=== PATIENT | female | born 2005 | race Caucasian/White ===

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

== ENCOUNTER 2023-09-16 08:00 | Outpatient (RCR) | payer MEDICAID, SELFPAY ==
--- NOTE | 2023-09-16 09:00 | BH.SGPN.GN ---
Behaviors/Verbalizations/Mental Status: [Patient was alert and oriented, appropriately dressed and groomed. Eye contact was good, motor activity normal, speech within normal limits. Affect congruent, mood content. Thoughts linear, logical, no signs of hallucinations or delusions. Patient reports moderate in anxiety/panic attacks, agitation/irritability/anger, low/moderate in depressed mood, and low in self-harm urges. Patient does not report symptoms on thoughts/risk of suicide.???] Client Response/Progress/Benefit: [This is the patients first group; he was open to share her mental health goals and stressors with the rest of the group. Patient reported her mood was ?tired?. Patients stressor is that her figuero? lost his job on Saturday and because they have a 5 month old baby to take care of. She said her fianc? does not seem worried, so she is trying to stay optimistic. The first win was that she went to [place] yesterday and took some family pictures. She said she has been wanting to do this but had not had the opportunity to yet. The second win was she got to see some family of hers that she has not seen in awhile which she stated was nice. Patient was interactive and respectful with other group members about their mental wins and stressors. Patient benefited from the discussion by listening to feedback and giving input on her peer?s stressors and mental health wins. Patient will continue with IOP treatment to help develop healthy skills, promote mood stability, and improve distress tolerance.] Narrative Note: []
--- NOTE | 2023-09-16 10:10 | BH.SGPN.GN ---
Behaviors/Verbalizations/Mental Status: []Eye contact is fair, at times good. Alert and oriented. Motor activity is appropriate. Appearance is casual. grooming is appropriate. Speech is Appropriate. Mood is anxious. Affect is congruent. Thoughts are linear and logical. No evidence of psychosis or hallucinations. Client Response/Progress/Benefit: []Client active participant throughout group session AEB providing contributions throughout, listening attentively to others, and taking notes throughout session. Group attentive during psychoeducation about emotion regulation and dysregulation. Appeared to connect with scenarios reviewed in group on emotion regulation vs dysregulation. Client shared that she struggles with regulating her emotions which can lead to her isolating or lashing out on others. Client benefited from session by gaining an increased understanding on the importance of managing emotions. Client to continue IOP to improve daily functioning, increase healthy coping, and prevent decompensation.
--- NOTE | 2023-09-16 11:10 | BH.SGPN.GN ---
Behaviors/Verbalizations/Mental Status: []Pt alert and oriented, casually dressed and groomed. Eye contact good. Motor activity restless. Speech within normal limits. Affect constricted, mood anxious. Thoughts linear, logical, no signs of hallucinations or delusions. Client Response/Progress/Benefit: [] Pt engaged in session AEB Pt listening attentively to peers and providing input. Attentive during psychoeducation on 4 zones of regulation. Pt able to identify feelings and behaviors for each zone. Pt identified coping skills one can use to support self in each zone. Identified one skill from each zone she can practice which included: give self a break, do something fun/enjoyable, and GLAD journal. Benefited from increased education on zones of regulation or stages of alertness for emotions and healthy coping skills to use for each zone. Will continue IOP tx to increase healthy coping skills, improve daily functioning, and prevent decompensation.
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
--- NOTE | 2023-09-16 13:37 | BH.MDN ---
Multi-Disciplinary Note Note 30-min Individual: Time Started:: 12:10 Date: 09/16/23 Purpose of session/treatment goals addressed:: Clinician checked in with patient since this was her first day. Discussed what she hopes to take away from the groups and answered any questions that she had. Symptoms/Behavior:: Patient was alert and oriented, appropriately dressed and groomed. Eye contact was good, motor activity normal, speech within normal limits. Affect congruent, mood content. Thoughts linear, logical, no signs of hallucinations or delusions Eye Contact:: Good Motor Activity:: Appropriate Appearance:: Casual Speech:: Appropriate and Other (Flat) Mood:: Euthymic Affect:: Congruent Thoughts:: Linear and No evidence of hallucinations/delusions noted Staff Interventions:: mindfulness skills, rapport building, strengths perspective, treatment planning and goal setting Client Response:: Patient was receptive and engaged in the session. Patient shared that she has been in and out of therapy since 2nd grade. She admitted that once she started feeling better, she stopped going because she thought she was better now and didn't need it. Patient reported that she had a baby 5 months ago and up until 2 months ago, her post affected her badly but feels she is better now. Patient said her favorite quote was hope breeds eternal misery. When prompted about what this meant to her, she stated that she has always been let down in the past. She said what is the point of getting your hopes up if you know you'll be disappointed. Patient recognizes the distortion here but doesn't know how to stop thinking this way. Therapist and Patient spoke briefly about treatment goals while in the program. Therapist answered any additional questions that she had about the program. Risks/Concerns:: None present Progress Toward Goals/Plan:: Good Progress. Time Stopped:: 12:46
--- NOTE | 2023-09-18 09:50 | BH.NA ---
Physical Data Vital Signs Pulse Rate: 72 Blood Pressure: 126/75 Height/Weight Height: 1.6 m Weight:: 90.718 kg Weight in Pounds: 200.0 lbs Current Medication Compliance Medication Compliance Do you take your medication as prescribed?: Yes Nutritional History Appetite Nutritional Instructions: Describe your appetite:: Fair Additional nutritional information:: Client is 5 months post . Client states her appetite varies, but she usually only eats 1 meal per day with some snacks. Functional Assessment Sleep Pattern Describe any problems with sleeping: Client states she sleeps about 6 hours per night. Sensory/Communication Assess Vision Problems Do you have any vision problems?: Glasses Communication Problems Do you have difficulty understanding what people are saying?: No Medical Problems/History Neurological Conditions Neurological: Other (See comments) (migraines) Pain Assessment Do you have acute or chronic pain?: No Family History Family History Other Anxiety Autoimmune disorder Bleeding disorder Blood clot in vein Depression Heart disease Mental disorder Seizures Surgical History Surgical History Have you had any surgeries? If so, list type and date:: Yes () Substance Abuse Substance Abuse Please describe substance abuse in the last 30 days:: Client states she commonly drinks alcohol on the weekends only, stating she sometimes drinks up to 4 drinks per day on weekends. Client states she vapes nicotine and has since she was a freshman in high school, but does state she did not while she was . Client denies substance use. Client states she does drink caffeine daily but does not drink more than 300mg caffeine and does not drink energy drinks. Mental Status Summary Mental Status Significant Findings/Observations on Appearance and Mood:: Client is alert and oriented x 4. Client is casually groomed with good hygiene. Client is cooperative with assessment. Client makes fair eye contact. Client's voice has normal rate/volume. Client has appropriate affect. Client makes logical associations and has normal processing. Client denies delusions/hallucinations. Client denies SI. Suicide Assessment Suicidal Ideation Are you currently or have you been suicidal in the past?: No Suicidal Intentional Rating Scale (SIRS): No suicidal thoughts (past or present) Physician Notification Past Psychiatric History MH Treatment Hx Past Psychiatric Medications:: Celexa, Zoloft, Cymbalta, Zyprexa, Prozac Age of first mental health symptoms: Client states she has been in counseling off and on since second grade, and states she has been on medication for mental health off and on since around the age of 10. Describe (age, circumstance, etc) any past hospitalizations: None. Current providers for mental health treatment (counselor, psychiatrist, shelter case manager, etc.): Dr. Cortez for psychiatry Fall Risk Assessment Age Age: Less than 60 Mental Status Mental Status: Willing & able to ask for assistance when needed Physical Status Physical Status: No problems Impairments Impairments: None Elimination Elimination: Continent AND independent Gait or Balance Gait or Balance: Walks independently Hx of Falls History of falls in the past 6 months: No known history Medications/Substances Psychotropics:: Antidepressants and Antihistamines (e.g. Benadryl) Medications/substances used within the past 24 hours or ordered to administer: 1-2 of the medications/substances listed above Total Score Total Points:: 1 RN Summary of Impressions Impressions Recommendations Impressions: Psychiatric Issues: 1. Bipolar, NOS 2. Panic disorder 3. PTSD 4. Strong cluster B traits Level of Care How do the client's current symptoms and functional deficits support need for this level of care?: Client was referred to IOP by Dr. Cortez for limited benefit in outpatient. Client states she has been feeling sad since 2nd grade, and she feels like now that she has a daughter, she needs more intensive therapy. Client states I just want to be the best I can be for her. Client reports crying spells, especially around her menstrual cycle. Client states she now has a hormonal IUD and her cycles are all over the place. Client reports anhedonia, decreased energy, and decreased motivation. Client states she is home all day with her 5 month old daughter while her boyfriend works 2 jobs, and states at times this feels overwhelming and states sometimes I wish I could just disappear. Client denies SI. Client states the first couple of months post she did feel more depressed, but she states now she is ready to build my tool box with skills to help me. IOP will promote gains and prevent further decompensation while providing social support and skills training.
[2023-09-18 10:31] VITALS: BP 126/75; PULSE 72
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
--- NOTE | 2023-09-18 13:15 | BH.DR.ITP ---
Initial Treatment Plan Patient Information Visit Information: ADMISSION DATE: EXPECTED LOS: 4-6 weeks Problems/Symptoms Problem #1:: Mood instability Symptom:: Depression, sadness, hopelessness, worthlessness, anhedonia, guilt, decreased concentration, low energy Problem #2:: Anxiety Symptom:: Worry, rumination, avoidance, flashbacks, nightmares, reexperiencing
--- NOTE | 2023-09-19 09:00 | BH.SGPN.GN ---
Behaviors/Verbalizations/Mental Status: [Patient was alert and oriented, appropriately dressed and groomed. Eye contact was poor, motor activity normal, speech within normal limits. Affect congruent, mood tired. Thoughts linear, logical, no signs of hallucinations or delusions. Reviewed Patients symptom tracker and the patient reports depressed mood, anxiety/panic attacks, agitation/irritability/anger, self-harm urges, and thoughts/risk of suicide within normal limits.] Client Response/Progress/Benefit: [ Patient was engaged and open to the discussion. Patient reported his mood was ?tired?.? The patient said her stressor was that the night before she had a migraine so bad that her mom had to come get her daughter because she could not care for her daughter. This made her feel guilty she said. The first win was that since her daughter was gone all night, she was able to get a full night rest. Her second win is that she is starting a new medication and anticipates seeing its results. Patient was interactive and respectful with other group members about their mental wins and stressors. Patient benefited from the discussion by listening to his peer?s stressors and mental health wins. Patient will continue with IOP treatment to help develop healthy skills, promote mood stability, and improve distress tolerance. ] Narrative Note: []
--- NOTE | 2023-09-19 11:15 | BH.SGPN.GN ---
Behaviors/Verbalizations/Mental Status: []Pt alert and oriented, casually dressed and groomed. Eye contact good. Motor activity appropriate. Speech within normal limits. Affect congruent. Mood anxious and depressed. Thoughts linear, logical, no signs of hallucinations or delusions. Client Response/Progress/Benefit: []Pt was an active participant AEB contribution to discussion, taking notes, and willingness to engage in group activity. Connected with the topic of pitfalls and listened to group discussion on internal and external barriers that prevent from choosing a healthier path to mental wellness. Group worked together to identify examples of internal pitfalls presented in the activity as well as strategies for managing or preventing these. Pt identified personal pitfalls to include: anxiety, pessimism, and self-doubt. Pt identified wanting to work on pitfall of self-doubt by practicing positive self-talk and starting an accomplishment journal. Benefited from group as pt learned to better identify and normalize potential barriers to improving mental health symptoms. Pt to continue IOP to challenge distorted thoughts, increase healthy coping, and prevent decompensation. Narrative Note: []
--- NOTE | 2023-09-19 11:39 | BH.MDN ---
Multi-Disciplinary Note Note 60-min Individual: Time Started:: 10:30 Date: 09/26/23 Symptoms/Behavior:: Patient said she was tired today and stated she had a migraine last night which is making her a little slower or more down then normal. Eye Contact:: Good Motor Activity:: Appropriate Appearance:: Casual Speech:: Appropriate Mood:: Euthymic Affect:: Congruent Thoughts:: Linear, Logical and No evidence of hallucinations/delusions noted Staff Interventions:: mindfulness skills, rapport building, strengths perspective, treatment planning and goal setting Risks/Concerns:: None present at this time. Progress Toward Goals/Plan:: Good Time Stopped:: :23
--- NOTE | 2023-09-23 09:10 | BH.SGPN.GN ---
Behaviors/Verbalizations/Mental Status: [Patient was alert and oriented, appropriately dressed and groomed. Eye contact was good, motor activity normal, speech within normal limits. Affect congruent, mood content. Thoughts linear, logical, no signs of hallucinations or delusions. Reviewed Patients symptom tracker and the patient reported themselves as low in depressed mood, anxiety/panic attacks, and agitation/irritability/anger. The patient does not report symptoms of self-harm urges or thoughts/risk of suicide] Client Response/Progress/Benefit: [Patient was engaged and open to the discussion. Patient reported her mood to be ?good?. Patient said her first win was that she went to a green party on Saturday and had a nice time. She said that she had never really been to a green party before, so this was a new experience for her. The second win was that they had a bunch of family come over on Saturday for a get together dinner and had ?a lot of good food?. She reported that her stressor had partially been related to the green party on Saturday. The patient said her, and her best friend got into an argument over the phone the following day about something the patient said. The patient said that she told a joke that the people there took seriously, and they were upset about it. Patient said that at first it felt like it ruined her whole day but has been able to cope well and decided that it was not her fault.? Patient was interactive and respectful with other group members about their mental wins and stressors. Patient benefited from the discussion by listening to feedback and giving input on her peer?s stressors and mental health wins. Patient will continue with IOP treatment to help develop healthy skills, promote mood stability, and improve distress tolerance. ] Narrative Note: []
--- NOTE | 2023-09-23 10:15 | BH.SGPN.GN ---
Behaviors/Verbalizations/Mental Status: [] Eye contact is good. Motor activity is appropriate. Appearance is casual. Speech is Appropriate. Mood is depressed. Affect is congruent. Thoughts are linear and logical. No evidence of psychosis. Client Response/Progress/Benefit: [] Client was attentive during interactive group discussions AEB by writing notes, asking questions, and sharing when prompted. Attentive during psychoeducation on the six types of boundaries (physical, emotional, intellectual, sexual, time, and material). Along with peers, pt contributed to interactive discussion identifying common challenges to setting and maintaining healthy boundaries which included; fear of other's response, guilt, fear of losing relationships, and resentment for having to establish the boundary in the first place. Client along with peers identified the benefits to setting boundaries. Client shared she struggles with setting boundaries because she feels guilty about doing so and often fears rejection as a result of establishing a boundary. Client benefited from increased awareness and insight on the importance/benefit to setting healthy boundaries. Will continue in IOP to improve daily functioning, increase thought challenging and self-care, and prevent decompensation. Narrative Note: []
--- NOTE | 2023-09-23 11:15 | BH.SGPN.GN ---
Behaviors/Verbalizations/Mental Status: []Pt alert and oriented, casually dressed and groomed. Eye contact good. Motor activity appropriate. Speech within normal limits. Affect congruent, mood anxious and depressed. Thoughts linear, logical, no signs of hallucinations or delusions. Client Response/Progress/Benefit: []Pt responded well to session, engaged and contributing. Pt attentive during psychoeducation on the different boundary styles. Pt reports connecting most with rigid boundary setting style and shared this has impacted her ability to consistently open up to others. Group brainstormed various strategies for improving ability to establish and maintain healthy boundaries. Reported she wants to work on using more open communication with supports. Appeared to benefit from increasing insight to boundary setting styles and the impacts on mental health. Will continue IOP tx to prevent decompensation, improve ability to challenge thought distortions, and increase healthy coping. Narrative Note: []
--- NOTE | 2023-12-09 11:01 | BH.MDN ---
Multi-Disciplinary Note Note 60-min Individual: Time Started:: 10:20 Date: 09/19/23 Purpose of session/treatment goals addressed:: Gather additional information for psychosocial and discuss guilt. Symptoms/Behavior:: Patient was alert and oriented, casually dressed and groomed. Eye contact was good, motor activity normal, speech within normal limits. Affect congruent, mood content. Thoughts linear, logical, no signs of hallucinations or delusions. Eye Contact:: Good Motor Activity:: Appropriate Appearance:: Casual Speech:: Appropriate Mood:: Euthymic Affect:: Congruent Thoughts:: Linear and No evidence of hallucinations/delusions noted Staff Interventions:: thought challenging, mindfulness skills and rapport building Client Response:: Patient and Therapist discussed additional information for the Psychosocial assessment and added historical information regarding relationships and mental health diagnosis within her family. The patient led the conversation back to some feelings of guilt regarding her daughter. Patient had mentioned in first group that she was struggling with guilt because she did not want to be like her mother when it came to her daughter needing her. Patient reported feelings of depression and anxiety as a result of her guilt. Risks/Concerns:: There are no risks or concerns at this time. Progress Toward Goals/Plan:: Good progress as indicated by being interactive and engaged in the conversation with the therapist and acknowledging that a lot of what has been conditioned in her is not her fault. Therapist and Patient talked about mindfulness and challenged her view on the scenario. Patient and therapist discussed the importance of taking care of herself and that to be the best mom she can be she has to be healthy to give the best care like she wants to. Patient responded well to the discussion and report having a different perspective of the situation. Patient still reported symptoms of guilt for the situation but stated she would keep working on this. Treatment recommendation is to continue IOP treatment to help unlearn negative coping, promote mood stability, and improve distress tolerance. Time Stopped:: 11:15
== END 2023-09-24 23:59 ==
LOC: BHIOP 08:00
PROVIDERS: PCP Nurse Practitioner Family; Referring Provider Psychiatry & Neurology Psychiatry; Visit Provider Psychiatry & Neurology Psychiatry
DX: F31.9 Bipolar disorder, unspecified (principal); F43.10 Post-traumatic stress disorder, unspecified; F41.0 Panic disorder [episodic paroxysmal anxiety]
CPT/HCPCS: 90792; H2012; H2020; S9480; T1002; 90832; 90837

== ENCOUNTER 2023-09-25 06:49 | Outpatient (RCR) | payer MEDICAID, SELFPAY ==
[2023-09-25 00:55] VITALS: BP 126/75; PULSE 72
--- NOTE | 2023-09-25 09:00 | BH.SGPN.GN ---
Behaviors/Verbalizations/Mental Status: [Patient was alert and oriented, appropriately dressed and groomed. Eye contact was good, motor activity normal, speech within normal limits. Affect congruent, mood content. Thoughts linear, logical, no signs of hallucinations or delusions. Reviewed patients mood tracker and the patient reported depressed mood, anxiety/panic attacks, aggravation/irritation/anger, self-harm urges, and risk/thoughts of suicide within patients normal base level.] Client Response/Progress/Benefit: [ Patient was engaged and open to the discussion. Patient reported her mood being ?optimistic?.??Patients first win is that she was able to get up early and got ready for the day. The patient stated that she does not typically do this because she is too tired but felt ?alright? this morning. The second win is that she got to relax yesterday which she feels she has not been able to do. Her stressor was that although she did relax yesterday, she lost one of her new medications and has not been able to find it. Patient was interactive and respectful with other group members about their mental wins and stressors. Patient benefited from the discussion by listening to feedback and giving input on her peer?s stressors and mental health wins. Patient will continue with IOP treatment to help develop healthy skills, promote mood stability, and improve distress tolerance. ] Narrative Note: []
--- NOTE | 2023-09-25 10:10 | BH.SGPN.GN ---
Behaviors/Verbalizations/Mental Status: [] Eye contact is good. Motor activity is appropriate. Appearance is casual. Speech is Appropriate. Mood is depressed. Affect is congruent. Thoughts are linear and logical. No evidence of psychosis. Client Response/Progress/Benefit: [] Pt participated at times during the group discussions however was mostly quiet and attentive AEB note-taking. Active participant in experiential activity. Attentive during interactive discussion in which group worked together to define resilience (i.e. continuing to bounce back from hardship; willingness to keep trying) and identify benefits of resilience. Attentive during interactive discussion on if resilience is something we are born with or can learn. Provided appropriate thoughts and feedback. Able to relate the experiential activity back to topic of resilience. Worked well in small groups to identify strategies to build resilience. Benefited from increased awareness of the role of resilience in mental health and ways to build resilience. Will continue in IOP to prevent decompensation, increase healthy coping, and to improve functioning. Narrative Note: []
--- NOTE | 2023-09-25 11:10 | BH.SGPN.GN ---
Behaviors/Verbalizations/Mental Status: []Pt alert and oriented, casually dressed and groomed. Eye contact good. Motor activity appropriate. Speech within normal limits. Affect congruent, mood depressed. Thoughts linear, logical, no signs of hallucinations or delusions. Client Response/Progress/Benefit: [] Pt responded well to session AEB completing the resilience worksheet provided. Pt actively participated in the discussion and worked cooperatively with group to identify strategies to enhance each of the components discussed. Pt reports belief they already use resilience traits of avoiding seeing crises as insurmountable, self-awareness, and self-care. Pt discussed that they could work more on nurturing a positive view of self because pt is ?very hard on myself and expect too much.? Pt seemed to benefit from discussing strategies for improving personal resilience and identifying resilience traits Pt already possesses. Will continue IOP tx to prevent decompensation, increase healthy coping skills, and combat distorted thought patterns. Narrative Note: []
--- NOTE | 2023-09-25 15:34 | BH.MTP_ITS ---
Documented by User: Brionna Peres 10/23/23 09:45 Problem/Goal #1 Problem/Goal #1 Stated Goal:: Patient will increase mood stability and promote motivation by reducing feelings of inadequacy, sadness, and guilt. Description of Barriers: Patient has struggled with depression for ?her whole life? due to emotional unavailable parents. Patient had a baby 5 months ago and experienced Post- Depression. She stated this has gotten better but still struggles with day-to-day depression. Patient is fearful of having the inability to emotionally be there for her daughter. She does not want her daughter to ?feel the way she did growing up?. Patient knows skills but is unable to motivate herself to practice these skills although she knows it will help. Functional Impact: the patient is a 18-year-old engaged female with a history of depression, possible bipolar disorder, erratic moods who is 5 months with a healthy daughter. The patient has a history of depression and her depression worsened when she was and afterwards as she spends all day with her . Patient has financial stress. The patient is stressed by being responsible for her 16-year-old brother. She endorses sadness, crying spells, low motivation, worthlessness, hopelessness, anhedonia, decreased sleep but 6 hours total lately. She also has low energy, decreased concentration, guilt and a desire to just disappear?. She describes a history of intense emotional episodes and mood swings which sometimes occur daily and involve going from being happy to angry and irritable and at times she has grandiosity and decreased sleep with no fatigue and increased energy people. She describes herself as a worrier by nature and has a history of panic attacks but has only had 2 in the past month as they have lessened. Goal Relevant Strengths/Supports: Patient is motivated, connected with outpatient psychiatry, and has support from her partner, his family, and her mother. Objectives Objective #1: Stated Objective: Client will learn and utilize 2-3 healthy coping strategies to manage depressive symptoms as shown by reduced DSM-5 cross-cutting symptom measure score. Interventions: Therapist will help patient identify at least 2 coping healthy coping skills for when patient starts showing depressive symptoms. Therapist will use CBT and DBT approaches to help patient rewire thought patterns. Discharge Criteria: Patient will have met this goal and is able to identify and utilize 2-3 coping skills she knows will help increase motivation. Additionally, patient will have met this goal when patients DSM-5 scores for depression decrease Target Date: 10/28/23 Review Date: 10/07/23 Status: Open Objective #2: Stated Objective: Patient will identify and acknowledge pessimistic thoughts used to reinforce worthlessness, guilt, and isolation at least once a day and practice a more mindful approach when necessary. Interventions: Therapist will help patient identify distortions and how to be mindful of situations. Therapist will use CBT and DBT to help patient inc rease insight to the connection between thoughts, emotions, and behaviors. Therapist will encourage patient to practice thought challenging. Use mindfulness meditation and cognitive therapy techniques to help the client learn to recognize and regulate the negative thought processes associated with depression and to change his/her relationship with these thoughts. Discharge Criteria: Patient will have achieved this goal and can verbalize pessimistic thoughts and step back to observe the situation with a more mindful approach at least once a day. Target Date: 10/28/23 Review Date: 10/07/23 Status: Open Problem/Goal #2 Problem/Goal #2 Stated Goal:: Will reduce intensity of anxiety and panic through increasing distress tolerance skills and mindfulness. Description of Barriers: Patient has struggled with anxiety for most of her life. Patient has experienced traumas that caused her PTSD and experiencing anxiety from it. Patient is afraid that her daughter will not have ?everything she needs? because patient unexpectedly got at an early age. Patient is fearful of having a bad relationship with her daughter and that she will ?feels how she felt? when she was younger. Patient reports worrying, panic attacks, decreased sleep, low motivation. Functional Impact: the patient is a 18-year-old engaged female with a history of depression, possible bipolar disorder, erratic moods who is 5 months with a healthy daughter. The patient has a history of depression and her depression worsened when she was and afterwards as she spends all day with her infant. Patient has financial stress. The patient is stressed by being responsible for her 16-year-old brother. She endorses sadness, crying spells, low motivation, worthlessness, hopelessness, anhedonia, decreased sleep but 6 hours total lately. She also has low energy, decreased concentration, guilt and a desire to just disappear?. She describes a history of intense emotional episodes and mood swings which sometimes occur daily and involve going from being happy to angry and irritable and at times she has grandiosity and decreased sleep with no fatigue and increased energy people. She describes herself as a worrier by nature and has a history of panic attacks but has only had 2 in the past month as they have lessened. Goal Relevant Strengths/Supports: Patient is motivated, connected with outpatient psychiatry, and has support from her partner, his family, and her mother. Objectives Objective #1: Stated Objective: Patient will increase ability to manage stressors and anxiety by gaining 2-3 distress tolerance skills. Interventions: Therapist will use mindfulness meditation and cognitive therapy techniques to help the client learn to recognize and regulate negative t houghts or worries associated with anxiety and to change her relationship with these thoughts, Therapist will teach and encourage patient coping skills to improve emotional regulation, mindfulness, and distress tolerance to help patient cope with anxiety in the moment. Discharge Criteria: Patient will have accomplished this goal when she can recognize worried or guilty thinking and report using 2-3 coping skills to manage anxiety. Additionally, patient will have accomplished this goal AEB reduction of DSM-5 scores for anxiety. Target Date: 10/28/23 Review Date: 10/07/23 Status: Open Objective #2: Stated Objective: Patient will identify 2-3 anxiety triggers and 2 coping skills to use when feeling anxious to manage anxiety. Interventions: Therapist will provide education on anxiety, avoidance behaviors, and maintenance cycles. Therapist will help patient explore personal symptoms and warning signs of anxiety. Therapist will teach patient coping skills to improve emotional regulation, mindfulness, and distress tolerance to help patient cope with anxiety in the moment. Discharge Criteria: Patient will have accomplished this goal when she can identify at least 2 triggers and report using 2 coping skills to manage anxiety. Additionally, patient will have accomplished this goal AEB reduction of DSM-5 scores for anxiety. Target Date: 10/28/23 Review Date: 10/07/23 Documented by User: Angela Linares 12/06/23 10:56 Master Treatment Plan Patient Information Program Physician:: Dr. Jodie Yancey Primary Therapist:: Brionna MANDUJANO Psychiatric Diagnoses Psychiatric Diagnoses:: Bipolar, NOS F31.81; Panic disorder; PTSD; Strong cluster B traits Diagnosis Code(s):: F31.81 Estimated LOS Estimated LOS (in weeks):: 6
--- NOTE | 2023-09-26 09:00 | BH.SGPN.GN ---
Behaviors/Verbalizations/Mental Status: [Patient was alert and oriented, appropriately dressed and groomed. Eye contact was good, motor activity normal, speech within normal limits. Affect congruent, mood tired. Thoughts linear, logical, no signs of hallucinations or delusions. Reviewed patients mood tracker and the patient reports depressed mood, anxiety/panic attacks, aggravation/irritation/anger, self-harm urges, and risk/thoughts of suicide within patients normal base level.] Client Response/Progress/Benefit: [Patient was engaged and open to the discussion. 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 ?The patients stressor is that she has a cold right now and so because of it, the patients mother has her daughter. The first win was that she had been able to do a bunch of work around the house she wouldn?t normally be able to finish if her daughter were there. The second win was that after all of that was done, she was forced to relax and take care of herself. Patient was interactive and respectful with other group members about their mental wins and stressors. Patient benefited from the discussion by listening to feedback and giving input on her peer?s stressors and mental health wins. Patient will continue with IOP treatment to help develop healthy skills, promote mood stability, and improve distress tolerance. ] Narrative Note: []
--- NOTE | 2023-09-26 10:15 | BH.SGPN.GN ---
Behaviors/Verbalizations/Mental Status: [] Eye contact is good. Motor activity is appropriate. Appearance is casual. Speech is Appropriate. Mood is depressed. Affect is congruent. Thoughts are linear and logical. No evidence of psychosis. Client Response/Progress/Benefit: [] Pt participated at times during the group discussions. Active participant in group activity on perspective. Attentive during interactive group discussions in which peers worked together to define 'perspective' (i.e. how we look at things; what we focus on) and discuss how it can impact one's mental health. Group was able to to identify what can impact our perspective and gave examples such as; past experiences, emotions, feelings, thoughts, support system, upbringing, and current environment. Benefited from increased awareness and insight on the role of perspective on mental health. Will continue in IOP to prevent decompensation, increase healthy coping and improve functioing. Narrative Note: []
--- NOTE | 2023-09-26 11:15 | BH.SGPN.GN ---
Behaviors/Verbalizations/Mental Status: []Pt alert and oriented, casually dressed and groomed. Eye contact good. Motor activity appropriate. Speech within normal limits. Affect congruent, mood anxious and euthymic. Thoughts linear, logical, no signs of hallucinations or delusions. Client Response/Progress/Benefit: []Pt was attentive and contributed to small group discussion. Pt completed strengths exploration worksheet, identifying sense of honesty, kindness, and creativity as personal strengths. Pt able to acknowledge how these strengths are helping pt and can continue to help pt in mental health journey. Pt worked with group to identify strategies that can help increase utilization of personal strengths and how to challenge one?s perspective in general. Pt identified wanting to work on increasing positive self-talk and focusing on what she is doing well in negative situations to help challenge perspective. Benefited from identifying personal strengths and strategies for enhancing use of identified strengths to challenge perspective. Pt to continue IOP tx to promote mood stability, improve thought challenging and recognizing daily accomplishments, and increase self-compassion. Narrative Note: []
--- NOTE | 2023-09-26 14:18 | BH.MDN ---
Documented by User: Brionna Peres 10/07/23 14:34 Multi-Disciplinary Note Note 60-min Individual: Time Started:: 12:10 Date: 09/26/23 Purpose of session/treatment goals addressed:: Patient and therapist discussed what things the patient would like to focus on while in the program. The patient chose Depression and Anxiety as her top focus. Patient stated she would like to help better motivate herself to accomplish tasks but doesn't know what skills work for her. Patient stated anxiety keeps her from doing things as well and keeps her paranoid. Patient also shared that she is often pessimistic and would like to be more mindful. Symptoms/Behavior:: Alert and Oriented Eye Contact:: Good Motor Activity:: Appropriate Appearance:: Casual Speech:: Appropriate Mood:: Other (Tired, Wore Out) Affect:: Congruent Thoughts:: Linear Staff Interventions:: thought challenging, rapport building, treatment planning and goal setting Client Response:: Patient was receptive and engaged in the session. Patient stated she was ready to make these changes for the sake of her daughter. Patient stated she knows about the different kinds of skills but implementing them in her day to day life is difficult. Risks/Concerns:: Patient denies self-harm risk and denies suicidal thoughts/ risk. Progress Toward Goals/Plan:: Progress is good as evidence by the patient being engaged in the session with the therapist and coming up with barriers/risks/and goals for the treatment plan. Patient will continue with IOP treatment to help develop healthy skills, promote mood stability, and improve distress tolerance. Time Stopped:: 01:00 Documented by User: Angela Linares 12/06/23 10:57 Multi-Disciplinary Note Note 60-min Individual: Time Stopped:: 13:00
--- NOTE | 2023-09-30 09:02 | BH.SGPN.GN ---
Behaviors/Verbalizations/Mental Status: [] Pt alert and oriented, Casually dressed and groomed. Eye contact good. Motor activity appropriate. Speech within normal limits. Affect congruent, mood euthymic. Thoughts linear, logical, no signs of hallucinations or delusions. Reviewed pt?s symptom tracker, no risk for suicidal ideation, plan, or intent. Client Response/Progress/Benefit: [] Client responded well to session as evidenced by listening attentively to others and sharing with others. Per symptom tracker client reported a 1/5, with 5 being severe, for depressed mood and a 2/5 for anxiety. Client reported she is starting to feel better after being sick for the last few days. Client stated mental heatlh positive as having positive connections with her family over the weekend. Client stated additional positive as gathering supplies to donate to her spiritism for the holidays. Client stated her emotion today is motivated. Seemed to benefit from support from peers. Client to continue IOP to continue use of healthy coping skills, challenge distortions, and prevent decompensation. Narrative Note: []
--- NOTE | 2023-09-30 10:15 | BH.SGPN.GN ---
Behaviors/Verbalizations/Mental Status: [] Eye contact is good. Motor activity is appropriate. Appearance is casual. Speech is Appropriate. Mood is euthymic and anxious. Affect is congruent. Thoughts are linear and logical. No evidence of psychosis. Client Response/Progress/Benefit: [] Pt was an active participant in group discussions. Attentive during psychoeducation AEB by note taking and providing some input. Pt worked along with peers in small groups to define guilt, inappropriate guilt, and appropriate guilt. Interactive discussion on examples of both inappropriate and appropriate guilt. Pt identified connecting with other's personal examples of inappropriate guilt and how this impacted their mental health. Benefited from increased awareness of guilt and the differences between appropriate and inappropriate guilt. Will continue in IOP to prevent decompensation, continue to promote self-care, and improve mood stability. Narrative Note: []
--- NOTE | 2023-09-30 11:15 | BH.SGPN.GN ---
Behaviors/Verbalizations/Mental Status: []Pt alert and oriented, neatly dressed and groomed. Eye contact good. Motor activity appropriate. Speech within normal limits. Affect congruent, mood euthymic. Thoughts linear, logical, no signs of hallucinations or delusions. Client Response/Progress/Benefit: []Pt engaged participant AEB listening attentively to others and providing input throughout group. Pt worked with their small group to identify strategies to manage inappropriate guilt. Pt stated pt often feels inappropriate guilt when pt takes time for herself or asks for help with her daughter. Pt wants to work on combatting inappropriate guilt by sitting with the uncomfortable and practicing self-care anyway. Pt seemed to benefit from learning about strategies to manage appropriate and inappropriate guilt. Pt to continue IOP to prevent decompensation, improve daily functioning, and reduce negative thinking patterns. Narrative Note: []
--- NOTE | 2023-10-01 09:05 | BH.SGPN.GN ---
Behaviors/Verbalizations/Mental Status: [] Eye contact is good. Motor activity is appropriate. Appearance is casual. Speech is Appropriate. Mood is depressed. Affect is flat. Thoughts are linear and logical. No evidence of psychosis. Reviewed daily check in sheet and no reports of suicidal ideations or intent. Client Response/Progress/Benefit: [] Pt participated at times during the group discussion. Attentive. Emotion for today is tired. Mental health wins include self-care which includes just hanging out . Pt reports that she is not isolating as much and opening up more to her support. More engaged in life and less distressed/hopeless. Progress noted per pt report of decreased isolation and increased engagement. Benefited from group support, encouragement, and feedback. Will continue in IOP to prevent decompensation, increase coping skills, and improve functioning. Narrative Note: []
--- NOTE | 2023-10-01 10:10 | BH.SGPN.GN ---
Behaviors/Verbalizations/Mental Status: [] Pt alert and oriented, neatly dressed and groomed. Eye contact good. Motor activity appropriate. Speech within normal limits. Affect congruent, mood depressed. Thoughts linear, logical, no signs of hallucinations or delusions. Client Response/Progress/Benefit: [] Pt was an active participant in group discussions. Attentive during psychoeducation. Contributed during interactive discussions in which peers attempted to define crisis. Pt identified examples of potential crisis. Group also worked together to identify unhealthy responses to crisis which included; isolation, self-harm, substance abuse, avoidance, and distraction. Pt identified personal warning signs as irritability, lack of self-care, and negative thinking patterns. Benefited from increased understanding of crisis and awareness of personal responses to crisis. Pt will continue IOP tx to reduce negative thinking patterns, improve daily functioning, and improve self-care practices. ? Narrative Note: []
--- NOTE | 2023-10-01 11:10 | BH.SGPN.GN ---
Behaviors/Verbalizations/Mental Status: [] Eye contact is fair. Motor activity is appropriate. Appearance is casual. Speech is Appropriate. Mood is dysthymic. Affect is constricted. Thoughts are linear and logical. No evidence of psychosis. Client Response/Progress/Benefit: [] Pt was an active participant in group discussions. Attentive during psychoeducation. In small group pt along with peers developed an active plan for their crisis warning signs. Pt identified three crisis warning signs as well as an action plan for each. One crisis warning sign is lack of self care with an action plan that involved: Setting a morning routine of personal hygiene, 1 day a week do something for herself like a face mask, and establish a nighttime routine that includes self-care items. Other warning sign was negative thoughts with an action plan that involved: Opposite action, reflecting on the good, identifying wins, and challenge negative thought patterns. Benefited from increased awareness of crisis warning signs and by developing crisis intervention strategies. Will continue in IOP to increase consistent utilization of healthy coping skills, challenge distorted thoughts, and prevent decompensation.
--- NOTE | 2023-10-02 09:00 | BH.SGPN.GN ---
Behaviors/Verbalizations/Mental Status: [Patient was alert and oriented, appropriately dressed and groomed. Eye contact was good, motor activity normal, speech within normal limits. Affect congruent, mood content. Thoughts linear, logical, no signs of hallucinations or delusions. Reviewed Patients symptom tracker and the patient reports depressed mood, anxiety/panic attacks, aggravation/irritation/anger, self-harm urges, and risk/thoughts of suicide within patients normal base level.] Client Response/Progress/Benefit: [Patient was engaged and open to the discussion. Patient reported her mood as ?good and optimistic?. Patient reported her first win is that she got to go shopping yesterday with her fianc? and they bought things for their house. Patient stated her second win is that she has been feeling ?decent? despite her being sick. Her stressor is that she has been sick for a couple of weeks now and she wishes it would go away. Patient was interactive and respectful with other group members about their mental wins and stressors. Patient benefited from the discussion by listening to feedback and giving input on his peer?s stressors and mental health wins. Patient will continue with IOP treatment to help develop healthy skills, promote mood stability, and improve distress tolerance. ] Narrative Note: []
--- NOTE | 2023-10-02 10:20 | BH.SGPN.GN ---
Behaviors/Verbalizations/Mental Status: []Pt alert and oriented, neatly dressed and groomed. Eye contact good. Motor activity appropriate. Speech within normal limits. Affect congruent, mood calm. Thoughts linear, logical, no signs of hallucinations or delusions. Client Response/Progress/Benefit: []Pt was mostly a passive participant in small group discussion. Pt?s group worked together to identify benefits of healthy relationships which included insight, accountability, and guidance. Group identified factors that lead to unhealthy relationships. Pt?s personal factors included not feeling like she deserves better. Actively participated in group experiential activity and expressed ideas to group. Benefited from increased insight and awareness of benefits of healthy relationships and factors that contribute to unhealthy relationships. Will continue IOP tx to improve mood stability, reduce negative thinking patterns, and increase self-care practices. Narrative Note: []
--- NOTE | 2023-10-02 11:18 | BH.SGPN.GN ---
Behaviors/Verbalizations/Mental Status: [] Client alert and oriented, casually dressed and groomed. Eye contact good. Motor activity appropriate. Speech within normal limits. Affect congruent, mood euthymic. Thoughts linear, logical, no signs of hallucinations or delusions. Client Response/Progress/Benefit: [] Client responded well to session, engaged and taking notes throughout. Worked with group to identify how variables contributing to the stability of the ball in the activity with characteristics of healthy and unhealthy relationships. Attentive during psychoeducation about characteristics of healthy, unhealthy, and abusive relationships. Client stated within the relationship with her fiance she does well with trust and respect. Client reported an area she would like to improve in is effective communication. Client shared she could so by reminding herself to spend time each day checking-in with him. Appeared to benefit from identifying the current healthy relationship attributes and an area client wants to work on to build healthier relationships. Client to continue IOP to increase healthy coping skills, challenge distortions, and prevent decompensation. Narrative Note: []
--- NOTE | 2023-10-02 11:46 | PCM.BH.PN_ITS ---
Progress Note Progress Note: History of Present Illness/Interim History: The patient is a 18-year-old female with a history of depression and bipolar disorder who is seen in follow-up at the [facility] health [facility]. I last saw the patient 2 weeks ago and at that time she was started on Latuda 20 mg p.o. daily. The patient did not start the medication as she states that she has had a cold for the past week and a half and did not want to start a new medication while she was sick. She continues to take her other 2 medications. However she ran out of her Lexapro a week ago because she lost the prescription bottle but started taking it again for the past 2 to 3 days. She did have some exacerbation in her mood and anxiety while off the Lexapro. She states that overall her mood is improved since admission but she has some continued episodes of elevated mood or irritability. Sleep has been good and she is getting about 6 or 7 hours and feels rested. She denies passive thoughts of , suicidal ideation, plan for suicide, homicidal ideation, hallucinations, delusions or thoughts of self-harm. Current Psychiatric Medications: [] Has not started Latuda 20 mg p.o. daily with food; Lexapro 20 mg p.o. daily (missed almost a week and restarted 3 days ago); hydroxyzine 25 mg p.o. 3 times daily as needed but does not take it more than once a day. Mental Status Examination: [] The patient is a 18-year-old female with glasses and blond hair who is casually dressed and groomed with good hygiene. She is cooperative and pleasant during the interview and has no psychomotor agitation or retardation. Eye contact is good and speech is regular rate and rhythm and fluent without pressure. Mood is depressed. Affect is constricted. Thought process is goal-directed and organized. Thought content: There is no evidence of passive thoughts of , suicidal ideation, homicidal ideation, thoughts of self-harm, hallucinations or delusions. Reality testing is intact. Judgment is intact. Insight is limited. Impulsivity is moderate. Diagnoses: [] 1. Bipolar, NOS 2. Panic disorder 3. PTSd 4. Strong cluster B traits 5. Primary support, financial and school issues Plan: [] The patient will continue the [facility] as the structure, support, education and group therapy will hopefully prevent worsening of the patient's symptoms. She felt safe during the interview and if it anytime she does not feel safe she will let us know or go to the emergency room. The risks, options, possible complications and side effects of the medications were discussed again with the patient and she understands and accepts these. The patient agrees to continue her Lexapro and to remain compliant with it. She plans to start the Latuda soon as she recovers from her cold. She will continue to follow-up follow-up with her outpatient psychiatric and medical providers and I will see the patient in follow-up while she is in the IOP program.
--- NOTE | 2023-10-02 14:18 | BH.MDN_ITS ---
Documented by User: [email or web address] [email or web address] 10/07/23 14:45 Multi-Disciplinary Note Note 30-min Individual: Time Started:: 08:30 Date: 10/02/23 Purpose of session/treatment goals addressed:: Purpose of session was to address treatment plan goal #1 obj #2 and goal #2 obj #1. Patient shared that she has not being feeling well physically and mentally. Patient stated she has been sick for almost 2 weeks now and her period is about to start which is why she is irritable. Patient stated she has been getting a lot of headaches and thinks this could be induced by stress. When asked about future goals, patient reported she just coasts through life and take things day by day. She admits that she would like to go to college next fall but has not made any progress getting herself signed up. Patient wants to understand her depression and anxiety better and learn which coping skills work best for her. Patient shared that she has been trying to figure out what exactly her coping skills are that she currently uses and what she has used in the past. Symptoms/Behavior:: alert and oriented Eye Contact:: Good Motor Activity:: Appropriate Appearance:: Casual Speech:: Appropriate Mood:: Euthymic and Irritable Affect:: Congruent Thoughts:: Linear and No evidence of hallucinations/delusions noted Staff Interventions:: mindfulness skills, rapport building, strengths perspective, treatment planning and taught coping skills Client Response:: Patient has been challenged the past couple weeks with her depression and anxiety and her willingness to use coping skills or motivate herself. Patient was interactive and response in session and tried to brainstorm ideas with the therapist on different coping skills she would like to try. Risks/Concerns:: Patient denies intent or risk for self-harm and suicidal thoughts. Progress Toward Goals/Plan:: Patient has fair progress but still is experiencing some symptoms of depression and anxiety and has not been coping well. Patient will continue with IOP treatment to help develop healthy skills, promote mood stability, and improve distress tolerance. Time Stopped:: 09:00 Documented by User: [email or web address] 12/06/23 10:58 Multi-Disciplinary Note Note 30-min Individual: Purpose of session/treatment goals addressed:: Purpose of session was to address treatment plan goal #1 obj #2 and goal #2 obj #1. Client Response:: Patient shared that she has not being feeling well phy sically and mentally. Patient stated she has been sick for almost 2 weeks now and her period is about to start which is why she is irritable. Patient stated she has been getting a lot of headaches and thinks this could be induced by stress. When asked about future goals, patient reported she just coasts through life and take things day by day. She admits that she would like to go to college next fall but has not made any progress getting herself signed up. Patient wants to understand her depression and anxiety better and learn which coping skills work best for her. Patient shared that she has been trying to figure out what exactly her coping skills are that she currently uses and what she has used in the past. Patient has been challenged the past couple weeks with her depression and anxiety and her willingness to use coping skills or motivate herself. Patient was interactive and response in session and tried to brainstorm ideas with the therapist on different coping skills she would like to try.
--- NOTE | 2023-10-07 09:05 | BH.SGPN.GN ---
Behaviors/Verbalizations/Mental Status: [] Pt alert and oriented, neatly dressed and groomed. Eye contact good. Motor activity appropriate. Speech within normal limits. Affect congruent, mood euthymic. Thoughts linear, logical, no signs of hallucinations or delusions. Reviewed pt?s symptom tracker, no risk for suicidal ideation, plan, or intent 10/07/23 Client Response/Progress/Benefit: []Pt responded well to session, attentive and engaged. Pt reports feeling optimistic this morning as pt has been utilizing healthy coping skills outside of IOP tx and she is seeing progress. Pt shared she has been managing stress and conflict better which has helped prevent pt from lashing out at her brother. Pt also has been spending time with family more and practicing self-care by doing her hair and makeup. Pt's stressor today is her teenage brother who lives with pt. Pt shared she is trying to remind herself if he won't himself I can't make him. Pt appeared to benefit from the group feedback received about setting emotional boundaries. Pt will continue IOP tx to promote mood stability, reduce negative thinking patterns, and increase application of healthy coping skills. Narrative Note: []
--- NOTE | 2023-10-07 10:15 | BH.SGPN.GN ---
Behaviors/Verbalizations/Mental Status: [Patient was alert and oriented, casually dressed and groomed. Eye contact good, motor activity normal, speech within normal limits. Affect congruent, mood content. Thoughts linear, logical, no signs of hallucinations or delusions. ] Client Response/Progress/Benefit: [Patient was open and participated in group discussions. Attentive during psychoeducation on stages of change. Participated during the activity. Patient shared that change made her think of ?growing pains? and stated she has felt like she has been stuck. She said that ?it hurts to put effort into trying because of the fear of failure?. Patient benefited from increased awareness of stages of changes and how emotions impact change. Will continue in IOP to promote gains, further combat distorted thinking, and improve daily functioning.] Narrative Note: []
--- NOTE | 2023-10-07 11:08 | BH.SGPN.GN ---
Behaviors/Verbalizations/Mental Status: []Pt alert and oriented, casually dressed and groomed. Eye contact good. Motor activity appropriate. Speech within normal limits. Affect congruent, mood content. Thoughts linear, logical, no signs of hallucinations or delusions. Client Response/Progress/Benefit: []Pt responded well to session, attentive. Did well to engage in and process activity. Pt worked with group to relate the strategies used to overcome barriers in the activity to managing change in own life. Pt identified wanting to work on improving self-compassion. Pt identified that she is between preparation and action stages of change. Noted that scheduling specific time to say positive affirmations and track daily accomplishments would aid in pt's ability to follow-through with making this change. Pt will continue IOP tx to further improve mood stability, promote continued identification and challenging of distortions, as well as prevent decompensation. Narrative Note: []
--- NOTE | 2023-10-09 09:00 | BH.SGPN.GN ---
Behaviors/Verbalizations/Mental Status: [] Eye contact is good. Motor activity is appropriate. Appearance is casual. Speech is Appropriate. Mood is anxious. Affect is congruent. Thoughts are linear and logical. No evidence of psychosis. Reviewed daily check in sheet and no reports of suicidal ideations or intent. Client Response/Progress/Benefit: [] Pt was an active participant in group discussion. Attentive. Daily symptom tracker notes 11/29 for depression and anxiety. Emotion for today is ? optimistic?. She reports being more engaged and active in her daily life. She is finding enjoyment in activities again and reports improved purpose. ? I?m cooking for myself?. She is also planning on cooking Thanksgiving meal for her family next week. She shared skills that she is utilizing to manage her emotions. Progress noted per pt report and AEB improved overall functioning, decreased isolation, and mood stabilization. Will continue in IOP to maintain gains. Narrative Note: []
--- NOTE | 2023-10-09 10:15 | BH.SGPN.GN ---
Behaviors/Verbalizations/Mental Status: [ Patient was alert and oriented, casually dressed and groomed. Eye contact good, motor activity normal, speech within normal limits. Affect congruent, mood content. Thoughts linear, logical, no signs of hallucinations or delusions. ] Client Response/Progress/Benefit: [Patient was open and participated in group discussions. Attentive during psychoeducation on growth mindset. Participated during the activity. Interactive group discussion on growth mindset in which group verbalized their current fixed mindsets and how they affect their mental health. Patient shared that one of her fixed thoughts was ?I am no help to anyone?. Patient benefited from increased awareness of growth mindset and fixed thoughts and how fixed thoughts impact their mental health. Will continue in IOP to promote gains, further combat distorted thinking, and improve daily functioning.] Narrative Note: []
--- NOTE | 2023-10-09 11:10 | BH.SGPN.GN ---
Behaviors/Verbalizations/Mental Status: []Pt alert and oriented, casually dressed and groomed. Eye contact good. Motor activity appropriate. Speech within normal limits. Affect congruent, mood agitated. Thoughts linear, logical, no signs of hallucinations or delusions. Client Response/Progress/Benefit: [] Pt was an active participant during activity and discussion AEB providing some input, connecting with peers, as well as taking notes throughout. Pt did well to engage as group worked on identifying characteristics and benefits of adopting a growth mindset. Worked with fellow participants in reframing the example fixed thoughts into growth mindset thoughts. Pt worked on changing own fixed thought of ?I mess up everything? to growth thought of ?I?m helping myself and my child.? Benefitted from discussing benefits of growth mindset and brainstorming strategies for prompting growth-mindset. Pt appeared to benefit from working in small groups to challenge own thoughts and help peers. Pt will continue IOP tx to promote mood stability, reinforce healthy coping skills, and improve daily functioning. Narrative Note: []
--- NOTE | 2023-10-11 09:00 | BH.SGPN.GN ---
Behaviors/Verbalizations/Mental Status: [Patient was alert and oriented, appropriately dressed and groomed. Eye contact was good, motor activity normal, speech within normal limits. Affect congruent, mood content. Thoughts linear, logical, no signs of hallucinations or delusions. Reviewed Patients symptom tracker and the patient reports low in depressed mood, anxiety/panic attacks, and agitation/irritability/anger. The patient does not report symptoms of self-harm urges or thoughts/risk of suicide. ] Client Response/Progress/Benefit: [Patient was engaged and open to the discussion. Patient reported her mood to be ?relaxed and good?. Patient stated her first win was that her daughter woke up in a good mood which made the patient feel good and have a positive attitude. The second win was that she is having a ?Friendsgiving? this weekend with her friends and family which she will be hosting. The patient stated her stressor was that she was late for group this morning because her fianc? was having troubles waking up to drive her to group. Patient was interactive and respectful with other group members about their mental wins and stressors. Patient benefited from the discussion by listening to feedback and giving input on her peer?s stressors and mental health wins. Patient will continue with IOP treatment to help develop healthy skills, promote mood stability, and improve distress tolerance. ] Narrative Note: []
--- NOTE | 2023-10-11 10:10 | BH.SGPN.GN ---
Behaviors/Verbalizations/Mental Status: []Pt alert and oriented, casually dressed and groomed. Eye contact good. Motor activity appropriate. Speech within normal limits. Affect congruent, mood euthymic. Thoughts linear, logical, no signs of hallucinations or delusions. Client Response/Progress/Benefit: [] Pt receptive to session AEB contributing to small group discussion, as well as listening attentively to others, and taking notes. Worked with group to brainstorm the positive and negative aspects of stress on physical and mental health. Group did well to identify the benefits of stress as well as the impact of distress on performance, relationships, and mental health. Pt identified their personal top stressors as: money, family, and home. Pt seemed to benefit from increased awareness of current stressors and impact stress has on mental health. Recommended to continue IOP tx to continue use of healthy coping skills, improve confidence, and prevent decompensation.
--- NOTE | 2023-10-11 10:15 | BH.SGPN.GN ---
Behaviors/Verbalizations/Mental Status: [Patient was alert and oriented, casually dressed and groomed. Eye contact good, motor activity normal, speech within normal limits. Affect congruent, mood content. Thoughts linear, logical, no signs of hallucinations or delusions. ] Client Response/Progress/Benefit: [Patient was open and participated in group discussions. Attentive during psychoeducation on stress. Participated during the activity. Interactive group discussion on stress in which group verbalized their current stresses in their lives and if certain stressors were larger than others. Patient stated when she is stressed, she will overthink and a lot of the time it makes it worse. Patient benefited from increased awareness of the effects of stress on their mental health. Will continue in IOP to promote gains, further combat distorted thinking, and improve daily functioning.] Narrative Note: []
--- NOTE | 2023-10-11 11:15 | BH.SGPN.GN ---
Behaviors/Verbalizations/Mental Status: []Pt alert and oriented, neatly dressed and groomed. Eye contact good. Motor activity appropriate. Speech within normal limits. Affect congruent, mood euthymic. Thoughts linear, logical, no signs of hallucinations or delusions. Client Response/Progress/Benefit: [] Pt was an active participant in group discussions and experiential activity. Was able to identify the connection between the experimental activity and utilization of stress management skills. Attentive during psychoeducation on the 4 A's (Avoid, adapt, alter, accept) of coping with stress as well as strategies to identify stressors in which one has no control, little control, or a great deal of control over. Pt shared plans to utilize the skill of altering her response to stressors by expressing her thoughts and setting more boundaries with family. Benefited from increased awareness of stress management strategies. Will continue IOP tx to reduce negative thinking patterns, improve self-compassion, and improve mood stability. ??? Narrative Note: []
--- NOTE | 2023-10-14 09:00 | BH.SGPN.GN ---
Behaviors/Verbalizations/Mental Status: [Patient was engaged and open to the discussion. Patient reported her mood to be ?motivated?. Patients mood was ?motivated?. Patients first win was that she had an early ?friendsgiving? that went really well. The second win was that during her ?friendsgiving? she started getting overwhelmed with how many people were in the kitchen and instead of saying nothing she was verbal about how she felt, and everyone left the room. Patients stressor was that her brother had been gone all night and she did not know where he was because his phone was . She says that he came home at 7am that morning and punched a hole through his door because of how angry he was. Patient was interactive and respectful with other group members about their mental wins and stressors. Patient benefited from the discussion by listening to feedback and giving input on her peer?s stressors and mental health wins. Patient will continue with IOP treatment to help develop healthy skills, promote mood stability, and improve distress tolerance. ] Client Response/Progress/Benefit: [] Narrative Note: []
--- NOTE | 2023-10-14 10:10 | BH.SGPN.GN ---
Behaviors/Verbalizations/Mental Status: []Pt alert and oriented, casually dressed and groomed. Eye contact good. Motor activity appropriate. Speech within normal limits. Affect congruent, mood euthymic. Thoughts linear, logical, no signs of hallucinations or delusions. Client Response/Progress/Benefit: []Pt receptive of session, actively engaged throughout AEB taking notes, providing some input, and listening to discussion. Appeared to connect with group topic of cognitive distortions and the impact of thought patterns on mental health, coping behaviors, and relationships. Pt reports utilizes distortions of jumping to conclusions, shoulds/musts, and personalization. Pt appeared to benefit from gaining insight on distorted thinking patterns and how this impacts overall mental health. Will continue IOP tx to challenge negative thinking, increase healthy coping skills, and prevent decompensation.
--- NOTE | 2023-10-14 11:15 | BH.SGPN.GN ---
Behaviors/Verbalizations/Mental Status: [] Eye contact is good. Motor activity is within normal limits. Appearance is casual. Speech is Appropriate. Mood is euthymic. Affect is congruent. Thoughts are linear and logical. No evidence of psychosis. Client Response/Progress/Benefit: [] Pt was an active participant during group discussions and activity, providing slightly more input and examples than in prior groups. Pt was placed in a smaller group and participated in quiz-show format in which small groups competed against each-other to answer questions based on identifying, challenging, and reframing cognitive distortions. Pt was engaged in the smaller group, participated in group interactions to brainstorm answers, and appeared to be comprehending cognitive distortions. Stated learning that ?just because I'm seeing something one way doesn't mean that is and accurate depiction. There are many ways our minds distort our thoughts/feelings?. Benefited from gaining further insight and awareness of cognitive distortions as well as practicing ways to reframe and challenge thoughts. Will continue in IOP to promote thought challenging, stabilize mood, and increase consistent application of healthy coping skills. Narrative Note: []
--- NOTE | 2023-10-15 09:00 | BH.SGPN.GN ---
Behaviors/Verbalizations/Mental Status: [] Eye contact good, casually dressed, motor activity appropriate, speech normal rate and tone, mood euthymic, congruent affect, thoughts linear and intact, no evidence of delusions or hallucinations. Reviewed client?s symptom tracker, no risk for suicidal ideation, plan, or intent as of Client Response/Progress/Benefit: [] Client responded well to session, offering ideas to peers and providing encouragement. Client reports feeling tired this morning with stating that it's due to it being a rainy day. Client's discussed how there is nothing negative going on, other than a little stressed for being around others a lot during the holidays. Discussed plan to decompress in car between traveling to different family events and leaving for a moment when feeling overwhelmed. Client was very supportive to other group members with offering support often and advice. Client will continue IOP tx to work on negative thought processes and to increase overall functioning. Narrative Note: []
--- NOTE | 2023-10-15 10:10 | BH.SGPN.GN ---
Behaviors/Verbalizations/Mental Status: [] Client alert and oriented, casually dressed and groomed. Eye contact good. Motor activity appropriate. Speech within normal limits. Affect congruent, mood euthymic. Thoughts linear, logical, no signs of hallucinations or delusions. Client Response/Progress/Benefit: [] Client was an active participant, AEB taking notes and providing input in group discussions and activities. Attentive during psychoeducation. Client engaged during interactive discussion in which the group defined self-care and discussed its benefits. Group discussed barriers to engaging in self-care. Client identified personal barrier of telling herself that she doesn't deserve to do self care especially when she could be using that energy to help others. Client participated in small groups where they worked to identify common self-care ?myths?. Benefited from increased awareness of self-care, its benefits, and the consequences of not utilizing self-care strategies. Will continue IOP tx to prevent decompensation, promote healthy coping skill application, and increase overall self worth. Narrative Note: []
--- NOTE | 2023-10-15 11:10 | BH.SGPN.GN ---
Behaviors/Verbalizations/Mental Status: [] Client alert and oriented, neatly dressed and groomed. Eye contact good. Motor activity appropriate. Speech within normal limits. Affect congruent, mood euthymic. Thoughts linear, logical, no signs of hallucinations or delusions. Client Response/Progress/Benefit: [] Client engaged participant AEB completing self-assessment worksheet and providing input throughout discussion. Client completed worksheet identifying current self-care practices and what self-care activities client wants to start using. Client selected physical self-care to begin practicing more consistently. Client plans to do this by being more consistent with hygiene and eating heathier food. Appeared to benefit from completing the self-care evaluation and gaining insights into current self-care practices, as well as identifying areas in which client would like to improve upon. Client will continue IOP tx to challenge cognitive distortions, increase emotional regulation skills, and improve daily functioning. Narrative Note: []
--- NOTE | 2023-10-16 09:05 | BH.SGPN.GN ---
Behaviors/Verbalizations/Mental Status: [] Eye contact is good. Motor activity is appropriate. Appearance is casual. Speech is Appropriate. Mood is anxious. Affect is congruent. Thoughts are linear and logical. No evidence of psychosis. Reviewed daily check in sheet and no reports of suicidal ideations or intent. Client Response/Progress/Benefit: [] Pt participated at times during the group discussion. Attentive. Daily symptom tracker notes 2/5 for agitation and 1/5 for depression/anxiety. Emotion for today is excited. She attributes this mostly to the holiday tomorrow. Reports increased coping skills and decreased reliance on her PRN medications for anxiety. Reports that she had a panic symptoms yesterday and took a PRN med for the first time in awhile and noticed that it made her very drowsy. Trigger to panic was a family social event stating that my social battery was drained. Insight on impact of extended social events on her mental health, functioning, and anxiety. Able to identify skills and strategies that she can incorporate tomorrow to help minimize anxiety (take breaks, distraction techniques, ,etc). Feels more prepared and motivated for tomorrow. I need to find ways to recharge throughout the day. Progress noted AEB increased insight into situations which can exacerbate mental health and ways to mitigate exacerbation. Benefited from group support, encouragement, and feedback. Will continue in IOP to prevent decompensation, increase healthy coping, and improve functioning. Narrative Note: []
--- NOTE | 2023-10-16 10:15 | BH.SGPN.GN ---
Behaviors/Verbalizations/Mental Status: [Patient was alert and oriented, casually dressed and groomed. Eye contact was good, motor activity normal, speech within normal limits. Affect congruent, mood depressed. Thoughts linear, logical, no signs of hallucinations or delusions. ] Client Response/Progress/Benefit: [Patient was open and participated in group discussions. Attentive during psychoeducation Goal Setting. Participated during the activity. Interactive group discussion on Goal Setting in which group verbalized how to create the best and most effective goal using the SMART Goal model for their lives. Patient stated trying to identify wins can help rewire how you view something and gives you more realistic expectations. Patient benefited from increased awareness of stages of changes and how emotions impact change. Will continue in IOP to promote gains, further combat distorted thinking, and improve daily functioning.] Narrative Note: []
--- NOTE | 2023-10-16 11:10 | BH.SGPN.GN ---
Behaviors/Verbalizations/Mental Status: []Pt alert and oriented, casually dressed, appropriately groomed. Eye contact good. Motor activity appropriate. Speech within normal limits. Affect congruent, mood euthymic. Thoughts linear, logical, no signs of hallucinations or delusions. Client Response/Progress/Benefit: [] Pt was engaged during discussion and willing to complete the worksheet challenging them to develop a personal SMART goal. Pt chose the goal of writing/listing chores/tasks for the week ahead. Pt stated knowing what needs to be done listed will help with accountability. Pt identified barriers which included procrastination, time, and self-discipline. Identified solutions such as do least appealing tasks first, carve out a little time each day, and opposite action. Pt receptive to identifying solutions for these barriers and willing to begin working on this goal. Benefited from this group by developing a short-term SMART goal related to mental health. Will continue IOP tx to continue use of healthy coping skills, challenge distortions, and prevent decompensation. Behaviors/Verbalizations/Mental Status: []Pt alert and oriented, casually dressed, appropriately groomed. Eye contact good. Motor activity appropriate. Speech within normal limits. Affect congruent, mood euthymic. Thoughts linear, logical, no signs of hallucinations or delusions. Client Response/Progress/Benefit: [] Pt was engaged during discussion and willing to complete the worksheet challenging them to develop a personal SMART goal. Pt chose the goal of writing/listing chores/tasks for the week ahead. Pt stated knowing what needs to be done listed will help with accountability. Pt identified barriers which included procrastination, time, and self-discipline. Identified solutions such as do least appealing tasks first, carve out a little time each day, and opposite action. Pt receptive to identifying solutions for these barriers and willing to begin working on this goal. Benefited from this group by developing a short-term SMART goal related to mental health. Will continue IOP tx to continue use of healthy coping skills, challenge distortions, and prevent decompensation.
--- NOTE | 2023-10-21 09:00 | BH.SGPN.GN ---
Behaviors/Verbalizations/Mental Status: [Patient was alert and oriented, appropriately dressed and groomed. Eye contact was good, motor activity normal, speech within normal limits. Affect congruent, mood content. Thoughts linear, logical, no signs of hallucinations or delusions. Reviewed Patients symptom tracker and the patient reports depressed mood, anxiety/panic attacks, aggravation/irritation/anger, self-harm urges, and risk/thoughts of suicide within patients normal base level.] Client Response/Progress/Benefit: [Patient was engaged and open to the discussion. Patient reported her mood to be ?tired but good?. Patient stated her first win was that she had a few more Thanksgivings she went to that had a lot of people. She shared this was a win because growing up she stated she was not very social but now enjoys these interactions. Her second win was that she was starting to feel overwhelmed so she let her [id number] keep her daughter for the night so that she could relax. A stressor was that she was in a lower mood than she has had for awhile and the after affects are still there. Patient was interactive and respectful with other group members about their mental wins and stressors. Patient benefited from the discussion by listening to feedback and giving input on her peer?s stressors and mental health wins. Patient will continue with IOP treatment to help develop healthy skills, promote mood stability, and improve distress tolerance.] Narrative Note: []
--- NOTE | 2023-10-21 10:15 | BH.SGPN.GN ---
Behaviors/Verbalizations/Mental Status: [] Eye contact is good. Motor activity is appropriate. Appearance is casual. Speech is Appropriate. Mood is euthymic. Affect is congruent. Thoughts are linear and logical. No evidence of psychosis. Client Response/Progress/Benefit: []Pt engaged participant AEB listening to others, engaging in activity, and providing feedback at times. Attentive during psychoeducation and provided insight into obstacles in the way of mental wellness. Pt shared with group current mental health reality and desired mental health reality. Stated practicing healthy coping skills as step she is currently making to get closer to desired reality. Identified barriers to desired reality include: lack of follow through, unrealistic expectations, poor boundaries, and negative thinking. Benefited from taking look at current mental health state and obstacles for progress. Pt to continue IOP to increase consistent healthy coping skills, challenge negative thinking, build confidence, and prevent decompensation.
--- NOTE | 2023-10-21 11:20 | BH.SGPN.GN ---
Behaviors/Verbalizations/Mental Status: []Eye contact is fair. Motor activity is appropriate. Appearance is casual. Speech is Appropriate. Mood is calm. Affect is constricted. Thoughts are linear and logical. No evidence of psychosis. Client Response/Progress/Benefit: [] Pt responded well to session, engaged throughout and providing ideas, but distracted at times. Provided input when prompted during discussion on what potential internal barriers may be keeping them from reaching their desired reality. Pt identified wanting to work on personal barrier of negative thinking patterns. Pt wants to work on this by challenging distortions and starting a ?win? journal. Pt appeared to benefit from brainstorming skills to overcome internal barriers, as well as support of the group. Will continue in IOP tx to increase behavioral activation, reduce negative self-talk, and increase self-care practices. ?? Narrative Note: []
--- NOTE | 2023-10-23 08:40 | BH.MTP_ITS ---
Treatment Plan Review Demographics Date of Admission:: 09/16/23 Date of Treatment Plan Review:: 10/09/23 Admitting Diagnoses:: 1. Bipolar, NOS 2. Panic disorder 3. PTSD 4. Strong cluster B traits 5. Primary support, financial and school issues Current Diagnoses:: 1. Bipolar, NOS 2. Panic disorder 3. PTSD 4. Strong cluster B traits 5. Primary support, financial and school issues Patient Status Patient's Response to Treatment:: Patient has responded to treatment as evidence by patient consistently attending IOP sessions and reduction of anxiety symptoms since admission. Patient contributes well during individual sessions and she engages well during group sessions. Patient has tried different coping skills outside of IOP and continues to apply the coping skills that work best for her. Patient has been using this to help motivate herself and use opposite action and behavior activation in her day to day life. Patient reports her mood has improved overall and has a better handle on her symptoms. Patient is gaining more control over her pessimistic mindset by practicing mindfulness. Status of Current Problems and Symptoms: Patient's symptoms are ongoing. Per patients DSM-5, patient's points for depression has stayed the same. Patient shows reduction in her anxiety symptoms but patients scores a 4 in depressive symptoms. Patients stressors include taking care of her baby and being a good mother as well as taking care of her teenage brother whom she suspects may need therapy. Patient also has the stressor of finances because during her time in [facility], her fianc? lost his job and has been home more. Patient is combating lack of motivation, improving self-compassion, and pessimistic mindset. Progress Problem #1: Problem Name:: Sadness, Hopelessness, Worthlessness, Anhedonia, Guilt, Low Energy Status of Goals:: Objective 1 is in progress. Patients DSM-5 Depression scores did not increase however, it also did not decrease. Patient reports increased understanding of emotional reasoning and coping skills. Patient has been using opposite action and behavior activation. Objective 2 is in progress. Patient has been using mindfulness when presented with situations that cause her to think negatively but occasionally struggles when her feelings are too strong. Patient reports when this happens she physically removes herself from these situations before returning to address them. Team Recommendations:: Treatment team recommends that patient continue working on this goals so patient can continue to manage symptoms. Patient is recommended to communicate with others when she feels unheard and when she needs support. Problem #2: Problem Name:: Anxiety, Panic, Worry, Rumination, Avoidance, Status of Goals:: Objective 1 is in progress. Patients DSM-5 Anxiety scores have decreased by 25% percent. Patient has reported better being able to manage stress in her life by addressing that stressor instead of ignoring it. Patient has also been practicing more self-care to help prevent burn out. Objective 2 is in progress. Patient has begun exploring what external and internal things causes her to be triggered with anxiety. Patient has identified that her negative self-talk has been one of her causes for anxiety so practicing mindfulness has been helpful for her here. Team Recommendations:: Treatment team recommends that the patient continue to work on this goal to further the reduction of her anxiety and to continue working on self-care to prevent burn out.
--- NOTE | 2023-10-23 09:05 | BH.SGPN.GN ---
Behaviors/Verbalizations/Mental Status: [] Eye contact is good. Motor activity is appropriate. Appearance is casual. Speech is Appropriate. Mood is depressed/irritable. Affect is congruent. Thoughts are linear and logical. No evidence of psychosis. Reviewed daily check in sheet and no reports of suicidal ideations or intent. Client Response/Progress/Benefit: [] Pt was an active participant in group discussion. Attentive. Daily symptom tracker notes 11/29 for depression, anxiety, and irritability. States this it was a rough morning. She shared stressors this AM and how this impacted her thoughts and mental health. She was able to practice CBT and calming skills in the moment and afterwards which overall helped her process the stressors and not let it follow me here. States I'm actually OK and feeling good. Shared that in the past she would ruminate on the stressors which would lead to negative thoughts, isolation, and limited functioning. An event in the morning could impact her mental health for days. I'm not feeding it as much. Progress noted per pt report. Benefited from group support, encouragement, and feedback. Narrative Note: []
--- NOTE | 2023-10-23 10:10 | BH.SGPN.GN ---
Behaviors/Verbalizations/Mental Status: []Eye contact is fair. Motor activity is appropriate. Appearance is casual. Speech is Appropriate. Mood is euthymic. Affect is congruent. Thoughts are linear and logical. No evidence of psychosis. Client Response/Progress/Benefit: []Pt was an active participant in group discussions AEB listening attentively to others and providing feedback at times. Participated in and was engaged during experiential activity. Able to relate activity to group topic of FOF. Engaged during interactive discussion on what failure means to the group in which peers identified and defined failure. Group was able to identify impact of fear of failure on mental health. Attentive during interactive discussion on the role that FOF plays in mental wellness, depression, anxiety, and growth. Pt reported fear of failure has kept pt from ?being true to myself? and trying new things. Benefited from increased awareness of how the role that FOF plays in mental health and decision-making. Will continue in IOP to increase healthy coping, reduce negative thinking patterns, and improve self-compassion.? Narrative Note: []
--- NOTE | 2023-10-23 11:10 | BH.SGPN.GN ---
Behaviors/Verbalizations/Mental Status: []Pt alert and oriented, casually dressed and groomed. Eye contact good. Motor activity appropriate. Speech within normal limits. Affect congruent, mood euthymic. Thoughts linear, logical, no signs of hallucinations or delusions. Client Response/Progress/Benefit: []Pt responded well to session, engaged in the experiential activity and attentive throughout group processing. Pt completed fear of failure worksheet and was able to identify thoughts and behaviors that reinforce personal fear of failure including: unrealistic expectations, negative core beliefs, and low distress tolerance. Pt participated in group discussion regarding strategies to overcome fear of failure. Identified wanting to work on?being more consistent with her application of coping skills. Appeared to benefit from increased knowledge of strategies to combat fear of failure and gaining self-awareness. Pt will continue IOP tx to prevent decompensation, gain distress tolerance skills, and improve daily functioning.? Narrative Note: []
--- NOTE | 2023-10-23 11:54 | PCM.BH.PN ---
Progress Note Progress Note: History of Present Illness/Interim History: The patient is a 18-year-old female with a history of depression and bipolar disorder who is seen in follow-up at the [facility] behavioral health IOP. I last saw the patient 3 weeks ago. She has been consistent in her attendance and engaged in the IOP according to the staff. The patient feels that her mood is much more stable lately. She feels she is learning to use the skills she is learning and feels more in control of herself than ever before. She still has ongoing stressors in her relationship and with her 16-year-old son but states that she is coping with them in a much healthier way. She started the Latuda in the past when prescribed but it caused restlessness and irritability so it was discontinued after 3 days. Sleep remains good. She denies passive thoughts of , suicidal ideation, plan for suicide, homicidal ideation, hallucinations, delusions or thoughts of self-harm. Current Psychiatric Medications: [] Started Latuda but took it only 2 or 3 days and stopped due to side effects. Lexapro 20 mg p.o. daily (restarted 3-1/2 weeks ago); hydroxyzine 25 mg p.o. up to 3 times daily (not needing it now). Mental Status Examination: [] The patient is a 18-year-old female with glasses and blond hair who is ambulatory with a normal gait and is casually dressed and groomed with good hygiene. She is cooperative during the interview and has no psychomotor agitation or retardation. Eye contact is good and speech is normal rate and rhythm and fluent with no pressure. Mood is mildly depressed. Affect is mildly constricted. Thought process is goal-directed and organized. Thought content: Patient is hopeful for the future. There is no evidence of passive thoughts of , thoughts of self-harm, suicidal ideation, homicidal ideation, hallucinations or delusions. Reality testing is intact. Judgment is intact. Insight is limited but improving. Impulsivity is moderate. Diagnoses: [] 1. Bipolar, NOS 2. Panic disorder 3. PTSD 4. Strong cluster B traits 5. Primary support, financial and school issues Plan: [] The patient will continue the IOP as the structure of support, education and group therapy will hopefully prevent worsening of the patient's symptoms. She felt safe during the interview and if it anytime she does not feel safe she will let us know or go to the emergency room. The risk, options, possible complications and side effects of the medications were again discussed with the patient and she understands and accepts these. No medication changes were made today. Patient will follow-up with Dr. Cortez soon as her outpatient provider and she will continue to follow-up with her medical providers and I will see her in follow-up while she is in the IOP.
== END 2023-10-24 23:59 ==
LOC: BHIOP 06:49
PROVIDERS: PCP Nurse Practitioner Family; Referring Provider Psychiatry & Neurology Psychiatry; Visit Provider Psychiatry & Neurology Psychiatry
DX: F31.9 Bipolar disorder, unspecified (principal); F43.10 Post-traumatic stress disorder, unspecified; F41.0 Panic disorder [episodic paroxysmal anxiety]
CPT/HCPCS: 99213; H2020; S9480; 90832

== ENCOUNTER 2023-10-25 07:08 | Outpatient (RCR) | payer MEDICAID, SELFPAY ==
[2023-10-25 00:50] VITALS: BP 126/75; PULSE 72
--- NOTE | 2023-10-25 09:00 | BH.SGPN.GN ---
Behaviors/Verbalizations/Mental Status: [] Pt alert and oriented, neatly dressed and groomed. Eye contact good. Motor activity appropriate. Speech within normal limits. Affect congruent, mood calm. Thoughts linear, logical, no signs of hallucinations or delusions. Reviewed pt?s symptom tracker, no risk for suicidal ideation, plan, or intent 10/25/23 Client Response/Progress/Benefit: []Pt responded well to session, providing supportive statements to peers. Pt reports on her daily symptom tracker that she is less anxious and depressed than she was earlier this week. Pt reports her mod is neutral this morning as pt is not bad, but also not great. Pt stated her biggest stressor right now is having a conflict with her fiance last night, but pt feels they did a good job talking about it. Pt is working on managing her emotions with the hope to prevent arguments. Pt stated she is also working on challenging her perspective and not accepting her distortions. Pt appeared to benefit from group support and connection. Pt will continue IOP tx to promote mood stability and reinforce healthy coping skills. Narrative Note: []
--- NOTE | 2023-10-25 10:10 | BH.SGPN.GN ---
Behaviors/Verbalizations/Mental Status: [] Eye contact is good. Motor activity is appropriate. Appearance is casual. Speech is Appropriate. Mood is euthymic. Affect is congruent. Thoughts are linear and logical. No evidence of psychosis. Client Response/Progress/Benefit: [] Client connected with topic of Anxiety and participated throughout, providing input and taking notes. Attentive during psychoeducation on different anxiety disorders and participated throughout interactive discussion defining anxiety and identifying cognitive and physiological symptoms of anxiety. Group discussed how anxiety can prevent them from trying new things. Common physical and cognitive symptoms identified by group included: ?what if thoughts?, ?fear of failure?, negative self-talk, feeling nauseous, shaky, and temperature change. Client identified isolation, irritability, canceling plans, sleep, avoidance, and starting many as their safety behaviors. Benefited from increased awareness and insight on anxiety and its impact. Plan is to continue in IOP to increase healthy coping skills, challenge distortions, and prevent decompensation.
--- NOTE | 2023-10-25 10:16 | BH.MDN ---
Multi-Disciplinary Note Note 30-min Individual: Time Started:: 12:04 Date: 10/16/23 Purpose of session/treatment goals addressed:: purpose of session was to check in on progress of treatment plan objectives 1 and 2 as well as discussing potential discharge date. Symptoms/Behavior:: Patient was alert and oriented, casually dressed and groomed. Eye contact was good, motor activity normal, speech within normal limits. Affect congruent, mood depressed. Thoughts linear, logical, no signs of hallucinations or delusions. Eye Contact:: Good Motor Activity:: Appropriate Appearance:: Casual Speech:: Appropriate Mood:: Euthymic Affect:: Congruent Thoughts:: Linear and No evidence of hallucinations/delusions noted Staff Interventions:: motivational interviewing, mindfulness skills and rapport building Client Response:: Patient has been actively working on her treatment plan objectives by using her developed coping skills which has been creating more motivation for her to preform her responsibilities. She states that the holiday has also helped because she is enjoying these social interactions where she wouldn't have before. Patient is still struggling with letting herself take on too much and become overwhelmed. Patient stated she has been able to affectively cope with this by being able to remove herself from situations that stress her out. Patient shared that she stopped her new medicine because it was causing irrational anger that she wasn't able to control. Patient has been communicating more effectively in her relationship and setting boundaries with her family and friends. She was able to speak up during when she had and early Thanksgiving at her house and tell her guests what she needed when they started to overwhelm her. Patient would like assistance with finding an outpatient therapist that specializes in CBT. Risks/Concerns:: No risks noted. Pt Denies SI, plan, or intent as of this date, 10/16/23 Progress Toward Goals/Plan:: Progress has been made. Patient reports improved ability to begin applying coping skills such as deep breathing and behavior activation. Patient has grown more comfortable with communicating her needs. Patient continues to struggle with giving herself time to decompress and taking on too many tasks at one time. She has good insight on the importance of being mindful and how this relates to her depression and motivation. Recommended continued IOP treatment to improve emotion regulation skills, reduce negative self-talk and improve self-compassion, and continue to promote mood stability. Time Stopped:: 12:35
--- NOTE | 2023-10-25 10:21 | BH.MDN ---
Multi-Disciplinary Note Note 45-min Individual: Time Started:: 12:05 Date: 10/11/23 Purpose of session/treatment goals addressed:: purpose was to discuss progress with mindfulness, coping skills, and treatment plan objective on depression related to motivation. Symptoms/Behavior:: Patient was alert and oriented, casually dressed and groomed. Eye contact was good, motor activity normal, speech within normal limits. Affect congruent, mood depressed. Thoughts linear, logical, no signs of hallucinations or delusions. Eye Contact:: Good Motor Activity:: Appropriate Appearance:: Casual Speech:: Appropriate Mood:: Euthymic Affect:: Congruent Thoughts:: Linear and No evidence of hallucinations/delusions noted Staff Interventions:: mindfulness skills, rapport building and taught coping skills Client Response:: Patient reported she has been relying on her mindfulness recently. Patients brother is causing her some stress because of his angry behavior which triggered her own anger. She said that being more mindful of the reasons he is angry has helped some and understands that she can be worried and care without taking his emotion in or to heart. Patient has started her new medication to help with mood stability. She has good insight on the importance of being mindful and how this relates to her depression and motivation. Risks/Concerns:: No risks noted. Pt Denies SI, plan, or intent as of this date, 10/11/23 Progress Toward Goals/Plan:: Patient has made progress. Patient reports improved ability to begin applying coping skills such as deep breathing and behavior activation. Patient continues to struggle with motivation although she reports this has gotten a little better. Patient reported that she is trying to have herself do one thing on her to-do list at a time and this can sometimes snowball into her doing more than she planned. Recommended continued IOP treatment to improve emotion regulation skills, reduce negative self-talk and improve self-compassion, and continue to promote mood stability. Time Stopped:: 12:50
--- NOTE | 2023-10-25 11:10 | BH.SGPN.GN ---
Behaviors/Verbalizations/Mental Status: []Client alert and oriented, casually dressed and groomed. Eye contact good. Motor activity appropriate. Speech within normal limits. Affect congruent, mood euthymic and anxious. Thoughts linear, logical, no signs of hallucinations or delusions. Client Response/Progress/Benefit: []Client was an active participant AEB pt providing input and listening attentively to peers. Attentive during psychoeducation on mindfulness coping skills and their impact on reducing anxiety and improving overall mental health wellness. Group was able to identify self-soothing and mind-based coping skills which included: 5-senses, meditation, deep breathing, journaling, and body scan. Client would like to work on calming skill of progressive muscle relaxation and cooking. Appeared to benefit from increasing repertoire of anxiety reduction skills. Client will continue in IOP tx to improve mood stability, further reduce negative self-talk, and promote healthy skill application. Narrative Note: []
--- NOTE | 2023-10-25 13:00 | BH.MDN_ITS ---
Multi-Disciplinary Note Note 30-min Individual: Time Started:: 12:00 Date: 10/25/23 Purpose of session/treatment goals addressed:: To discuss self-care, motivation, outpatient therapies, and discharge. Symptoms/Behavior:: Patient was alert and oriented, casually dressed and groomed. Eye contact was good, motor activity normal, speech within normal limits. Affect congruent, mood depressed. Thoughts linear, logical, no signs of hallucinations or delusions. Eye Contact:: Good Motor Activity:: Appropriate Appearance:: Casual Speech:: Appropriate Mood:: Euthymic Affect:: Congruent Thoughts:: Linear and No evidence of hallucinations/delusions noted Staff Interventions:: thought challenging, motivational interviewing, CBT techniques, mindfulness skills and rapport building Client Response:: Patient reports feeling more positive about completing the program but is also apprehensive. Patient stated she has enjoyed the program and feels upset that she wont have anything to look forward to anymore. Patient and therapist talk about different activities she could do instead to replace that gap. Patient feels as if she has a plan put in place for her future that is more solid. This includes becoming more engaged in the [employer] program and choosing a college to start her degree. Patient shared that her and her fianc? got into an argument earlier this week that she claimed was her fault but when picking it apart with the therapist, she decided it wasn't just her fault. Patient still struggles with taking the blame for negative situations at times. Patient was offered to call with the therapist some outpatient therapies to make sure she has that transition, however, the patient wanted to research the places before deciding to call first. Risks/Concerns:: No risks noted. Patient Denies SI, plan, or intent as of this date, 10/25/23 Progress Toward Goals/Plan:: Patient has made progress. Patient has been utilizing her coping skills such as deep breathing, behavior activation, and stretching. Patient has been communicating more effectively and removing herself from situations when she becomes overwhelmed instead of having an instant reaction. Patient has plans and future goals she has more emphasis on. Recommended continued IOP treatment to improve emotion regulation skills, reduce negative self-talk and improve self-compassion, and continue to promote mood stability. Time Stopped:: 12:27
--- NOTE | 2023-10-30 09:02 | BH.SGPN.GN ---
Behaviors/Verbalizations/Mental Status: [] Pt alert and oriented, casually dressed and groomed. Eye contact good. Motor activity appropriate. Speech within normal limits. Affect congruent, mood euthymic. Thoughts linear, logical, no signs of hallucinations or delusions. Reviewed pt?s symptom tracker, pt reports no suicidal ideation or intention. Client Response/Progress/Benefit: [] Client responded well to session as evidenced by listening attentively to others, providing feedback, and processing with group. Client reported mental health positive as seeing her psychiatrist this morning. Client stated additional mental health positive as her mood is improving. Client identified IOP, practicing skills, and communicating as things that have helped her improve. Client stated stressor is her boyfriend not having a job still which puts on added pressure on her. Client seemed to benefit from support from others and highlighting progress he has made. Client to continue IOP to maintain gains, continue to challenge distortions, and prevent decompensation.
--- NOTE | 2023-10-30 10:10 | BH.SGPN.GN ---
Behaviors/Verbalizations/Mental Status: [] Eye contact is good. Motor activity is appropriate. Appearance is casual. Speech is Appropriate. Mood is euthymic. Affect is full. Thoughts are linear and logical. No evidence of psychosis. Client Response/Progress/Benefit: [] Pt was an active participant in group discussion. Attentive. Participated during interactive discussion on what is meant by Taking Action and what is holding them back from taking action on their mental health. Participated with peers during small group discussions on the impact of negative thoughts, depression, anxiety, guilt, low self-esteem, and anger on an individual's functioning. Areas that patient wished to gain more control over include; avoidance, inappropriate guilt, and being passive. Believes that if they can gain more control over those areas of their life they will have more goals and be happier. Benefited from increased awareness of obstacles to mental wellness. Will continue in IOP to maintain gains, increase healthy coping, and improve functioning. Narrative Note: []
--- NOTE | 2023-10-30 11:10 | BH.SGPN.GN ---
Behaviors/Verbalizations/Mental Status: []Pt alert and oriented, casually dressed and groomed. Eye contact poor. Motor activity appropriate. Speech within normal limits. Affect constricted, mood calm. Thoughts linear, logical, no signs of hallucinations or delusions. Client Response/Progress/Benefit: [] Pt responded well to session, taking notes and participating in worksheet discussion. Pt connected with the zones of action/change and that making sustainable change comes from stepping out of one?s comfort zone into the learning zone. Pt set a goal to gain control over their pessimistic perspective. Pt will do this by reframing negative thoughts by writing down two things she is hopeful about each week. Pt identified support they might need as a journal, limiting her negative influences, and opposite action. Appeared to benefit from identifying a small goal to benefit mental health. Will continue IOP tx to promote use of healthy coping skills and establish aftercare. Narrative Note: []
--- NOTE | 2023-11-01 08:54 | BH.DS_ITS ---
Discharge Summary Demographics Date of Admission:: 09/18/23 Discharge Date: 11/01/23 Presenting Problems at Admission:: the patient is a 18-year-old engaged female with a history of depression, possible bipolar disorder, erratic moods who is 5 months with a healthy daughter. The patient has a history of depression and her depression worsened when she was and afterwards as she spends all day with her . Patient has financial stress. The patient is stressed by being responsible for her 16-year-old brother. She endorses sadness, crying spells, low motivation, worthlessness, hopelessness, anhedonia, decreased sleep but 6 hours total lately. She also has low energy, decreased concentration, guilt and a desire to just disappear?. She describes a history of intense emotional episodes and mood swings which sometimes occur daily and involve going from being happy to angry and irritable and at times she has grandiosity and decreased sleep with no fatigue and increased energy people. She describes herself as a worrier by nature and has a history of panic attacks but has only had 2 in the past month as they have lessened. Patient has struggled with depression for ?her whole life? due to emotional unavailable parents. Patient had a baby 5 months ago and experienced Post- Depression. She stated this has gotten better but still struggles with day-to-day depression. Patient is fearful of having the inability to emotionally be there for her daughter. She does not want her daughter to ?feel the way she did growing up?. Patient knows skills but is unable to motivate herself to practice these skills although she knows it will help. Discharge Diagnoses:: 1.Bipolar, NOS 2. Panic disorder 3. PTSD 4. Strong cluster B traits 5. Primary support, financial and school issue Reason for Discharge:: Patient has completed her IOP treatment goals as evidence by the patients decrease in DSM-5 scores by 54% since admission. As well as patient has reported that she feels like she is changing more and more everyday. Patient has obtained better coping skills for her depression and anxiety such as behavior activation, opposite action, and walking away from overwhelming situations and then coming back to address them. Patient will continue with outpatient counseling and see her PCP or Dr. Cortez for medication management. Treatment Progress During Treatment & Response: Patient has responded well to treatment as evidence by patient consistently attending IOP sessions and her reduction of DSM-5 scores since admission. Patient always showed attentiveness and was receptive to learning during group and individual sessions. Patient allowed herself time for HERSELF and reportability able to enjoy free time without guilt. Overall, Patients symptoms overall reduction is 54% since admission with her depression decreasing by 50%, her anxiety by 33%, and her repetitive thoughts by 67%. Patient has increased motivation and optimism for her future and has a plan to start college in Fall 2023! Patient has been better able to not absorb the emotions of those around her and has been better able to manage stress around herself. But most importantly, patient has identified that she is not only a mother, but she is also still her own person and understands being a mother is not her only role. Patient will follow up with her PCP or Dr. Cortez for medication management and follow up with an outpatient therapy agency. Issues Still to be Addressed:: Combating negative self-talk, mindfulness, and setting boundaries. Discharge Recommendations/Instructions:: Patient will follow up with her PCP or Dr. Cortez for medication management. Patient has another appointment with Dr. Cortez on December 18 2023. Patient was given resources for outpatient counseling in the area. Therapist offered to contact an agency with the patient but patient declined and wanted to do more research on each place before calling. Patient would like to attending [facility] aftercare group whenever available. Discharge Handout
--- NOTE | 2023-11-01 08:54 | BH.IGGP_ITS ---
Aftercare Plan Demographics Treatment End Date:: 11/01/23 Psychiatrist:: Jodie Yancey Psychiatrist Office #:: [phone] [facility]/IOP Therapist:: Brionna Peres Therapist Phone #:: [phone] Medications Home Medications meclizine 25 mg tablet 25 mg PO TID-QID PRN dizziness 03/12/23 ondansetron 4 mg disintegrating tablet 4 mg PO DAILY PRN nausea 03/12/23 bupropion HCl 150 mg 24 hr tablet, extended release (Wellbutrin XL) 150 mg PO QAM #30 tabs 10/30/23 escitalopram oxalate 20 mg tablet 20 mg PO DAILY #30 tabs 10/30/23 hydroxyzine HCl 25 mg tablet 25 mg PO TID PRN anxiety #90 tabs 10/30/23 Plan Details Progress/Aftercare Plan Details:: Ana has responded well to treatment as evidence by Ana consistently attending IOP sessions and her reduction of DSM- 5 scores since admission. Ana always showed attentiveness and was receptive to learning during group and individual sessions. Ana allowed herself time for HERSELF and reportability able to enjoy free time without guilt. Overall, Ana's symptoms overall reduction is 54% since admission with her depression decreasing by 50%, her anxiety by 33%, and her repetitive thoughts by 67%. Ana has increased motivation and optimism for her future and has a plan to start college in Fall 2023! Ana has been better able to not absorb the emotions of those around her and has been better able to manage stress around herself. But most importantly, Ana has identified that she is not only a mother, but she is also still Ana and understands being a mother is not her only role. Ana will follow up with her PCP or Dr. Cortez for medication management and follow up with an outpatient therapy agency. Strategies for Success:: 1. Opposite Action and Behavior Activation! Continuing to remind yourself that even just doing one small thing will help motivate you and improve your mood. You may allow yourself time to rest but don't stay stuck there! 2. Self-Care! Remember that you are worth giving yourself self-love and self-compassion. And if we don't allow ourselves these things, then we will burn out hard and fast. 3. Mindfulness! You are only one person, and you can do extraordinary things but you are still only one person and there are only 24 hours in a day. Give yourself judd and reflect on the bigger picture of situations that become overwhelming. Then you may be able to see sometimes we can have a habit of setting unrealistic expectations that NO ONE could achieve! Stay on this planet with your expectations of yourself and remember we don't have to be an overachiever to celebrate or be proud of ourselves. 4. Remember that progress isn't linear and that it is okay to feel bad or off! Reminding yourself that its just a bad situation not a bad day, week, or life will do wonders! Your mindset of situations will be a big team driver on how you feel and your perspective of the world and your life. 5. Doing our best is going to look different every day! Appointments Appointments/Referrals to Other Services:: 1. Follow up with PCP or Dr. Cortez for medication management. 2. follow up with an outpatient therapy agency 3. To be determined for IOP Aftercare from 2pm-3:30pm for about 8 weeks.
--- NOTE | 2023-11-01 09:00 | BH.SGPN.GN ---
Behaviors/Verbalizations/Mental Status: []Eye contact is good. Motor activity is appropriate. Appearance is casual. Speech is Appropriate. Mood is euthymic and anxious. Affect is congruent. Thoughts are linear and logical. No evidence of psychosis. Reviewed daily check in sheet and no reports of suicidal ideations or intent. Client Response/Progress/Benefit: []Pt responded well to session, attentive and providing supportive statements. Pt reports feeling optimistic this morning and shared that she is in a good mood today. Pt's last day in IOP tx and pt feels ready and not ready to leave. Pt shared she feels that she has the coping skills and resources she needs, but pt will miss the structure and support. Pt stated she went to the gym yesterday and this was positive. Pt wants to get a gym membership in the near future to help maintain mood stability. Pt did not share any additional stressors, but pt acknowledged that she is anxious about being without IOP support. Pt appeared to benefit from reflecting on her progress and connecting with peers. Pt will discharge from IOP tx as pt has accomplished her goals and no longer meets criteria for IOP level of care. Narrative Note: []
--- NOTE | 2023-11-01 10:05 | BH.SGPN.GN ---
Behaviors/Verbalizations/Mental Status: []Eye contact is good. Motor activity is appropriate. Appearance is casual. Speech is Appropriate. Mood is euthymic, anxious. Affect is congruent. Thoughts are linear and logical. No evidence of psychosis. Client Response/Progress/Benefit: []Pt was an active participant in group discussion. Attentive during psychoeducation on the CBT [place] (Thoughts, Behaviors, Emotions). Engaged in group discussion on how thoughts and behaviors can contribute to maintaining adverse feelings, such as depression, anxiety, and irritability. Completed worksheet in which pt identified a thought that is keeping them stuck or is in obstacle to increased mental wellness. The thoughts that pt identified were ?This isn't going to work, I'm broken, and Nothing ever goes right for me. Shared this maintains depression and anxiety cycles. Pt benefited from increased awareness of the basis of CBT therapy as well as specific thoughts that are impacting pt' progress. Will d/c today given pt progress and continue in outpatient tx to promote gains, maintain mood stability, prevent decompensation. Narrative Note: []
--- NOTE | 2023-11-01 10:11 | BH.MDN ---
Multi-Disciplinary Note Note 30-min Individual: Time Started:: 12:00 Date: 11/01/23 Purpose of session/treatment goals addressed:: Discuss Aftercare summary, outpatient therapies, plans for the future, and aftercare group. Symptoms/Behavior:: Patient was alert and oriented, casually dressed and groomed. Eye contact was good, motor activity normal, speech within normal limits. Affect congruent, mood content. Thoughts linear, logical, no signs of hallucinations or delusions. Eye Contact:: Good Motor Activity:: Appropriate Appearance:: Casual Speech:: Appropriate Mood:: Euthymic Affect:: Congruent Thoughts:: Linear and No evidence of hallucinations/delusions noted Staff Interventions:: rapport building, discharge planning, strengths perspective and reviewed DSM-5 Client Response:: Patient and therapist spoke about her aftercare discharge summary. Patient reports that she does feel ready but doesn't want to leave the program because she will miss the routine. Patient has plans to fill her time with positive activities such as being more involved with the [employer] program, looking into the [employer], and watching or listening to motivational videos. Patient was able to identify the progress she has made and plans to remind herself of how far she has came whenever she starts to feel down. Patients DSM-5 scores have reduced overall by 54%. Patient was given resources to call to set up an appointment with an outpatient agency to continue counseling. Therapist offered to call with patient to set one up before leaving but patient declined. Patient stated that she wants to do research on the places before calling first and has not had the time to do this yet. Patient has successfully discharged from the [facility] program. Risks/Concerns:: No risks noted. Patient Denies Suicidal Ideation, plan, or intent as of this date, 11/01/23 Progress Toward Goals/Plan:: Progress has been made as evidence by discharging from the program and reduced DSM-5 scores by 54% overall. Patient has completed her treatment plan goal objectives and reports being excited and hopeful for the future. Patient is recommended to call an outpatient service provider and continue outpatient counseling and see her PCP or Dr. Cortez for medication management. Time Stopped:: 12:25
--- NOTE | 2023-11-01 11:00 | BH.SGPN.GN ---
Behaviors/Verbalizations/Mental Status: []Pt alert and oriented, casually dressed and groomed. Eye contact good. Motor activity appropriate. Speech within normal limits. Affect congruent, mood euthymic. Thoughts linear, logical, no signs of hallucinations or delusions. Client Response/Progress/Benefit: []Pt responded well to session, contributing to discussion and attentive throughout discussion. Pt identified a negative thought that has kept them stuck. Pt's thought was Nothing works out for me.? Pt reported when they think this way, pt gets disheartened and shuts down which results in isolating and not trying or pushing others away. Pt worked to reframe the thought by finding more rational, realistic ways to look at the thoughts and then processed them within group setting. Pt reframed the thought to ?Look at how far you've come and all that you've made it through. You have more tools to continue now?. Pt appeared to benefit from practicing challenging negative thinking. Pt will d/c from IOP given gains and continue outpatient tx to prevent decompensation and maintain gains. ? Narrative Note: []
== END 2023-11-04 07:00 | disposition home or self-care (01) ==
LOC: BHIOP 07:08
PROVIDERS: PCP Nurse Practitioner Family; Referring Provider Psychiatry & Neurology Psychiatry; Visit Provider Psychiatry & Neurology Psychiatry
DX: F31.9 Bipolar disorder, unspecified (principal); F41.0 Panic disorder [episodic paroxysmal anxiety]; F43.10 Post-traumatic stress disorder, unspecified
CPT/HCPCS: H2020; S9480; 90832

== ENCOUNTER 2023-12-05 09:00 | Outpatient (RCR) | payer MEDICAID, SELFPAY ==
--- NOTE | 2023-12-05 15:21 | BH.COMM ---
Communication Note Communication with Client Communication Note: Patient completed IOP and presents today to start relapse prevention group which meets once weekly (1.5 hours) for 8 weeks. Case discussed with Dr. Solorzano with plan to admit with dx of F31.9
--- NOTE | 2023-12-05 17:23 | BH.MTP_ITS ---
Master Treatment Plan Patient Information Program Physician:: Dr. Jodie Yancey Primary Therapist:: Angela BECKHAM Psychiatric Diagnoses Psychiatric Diagnoses:: Bipolar, NOS F31.81; Panic disorder; PTSD; Strong cluster B traits Diagnosis Code(s):: F 31.81 Estimated LOS Estimated LOS (in weeks):: 8 Problem/Goal #1 Problem/Goal #1 Stated Goal:: client will maintain or see a reduction in symptoms AEB client score on the DSM 5 cross-cutting measure and improve client's daily functioning. Objectives Objective #1: Stated Objective: Client will continue to consistently apply healthy coping skills to maintain progress made in IOP tx. Interventions: Through group therapy, client will review warning signs and triggers as well as healthy coping skills learned in IOP tx to successfully ma intain gains while transitioning into outpatient therapy. Discharge Criteria: Client will have accomplished this goal when client's score on the DSM-5 cross-cutting measure has maintained or reduced over a 8 week period. Target Date: 01/30/24 Review Date: 01/02/24 Status: open Objective #2: Stated Objective: Client will learn and utilize 2-3 maintenance strategies to prevent decompensation from original IOP DSM-5 scores. Interventions: Through group therapy, client will be provided with education on healthy maintenance behaviors, relapse prevention techniques, and healthy coping strategies. Discharge Criteria: Client will have accomplished this goal when can report using at least 2 maintenance skills to prevent decompensation compared to original IOP DSM-5 scores Target Date: 01/30/24 Review Date: 01/02/24 Status: open
--- NOTE | 2023-12-06 14:00 | BH.SGPN.GN ---
Behaviors/Verbalizations/Mental Status: [] Pt alert and oriented, casually dressed. Eye contact good. Motor activity appropriate. Speech within normal limits. Affect congruent, mood dysthymic. Thoughts linear, logical, no signs of hallucinations or delusions. Client Response/Progress/Benefit: [] Pt receptive of session, engaged and providing supportive feedback throughout group. Reports that since leaving IOP she has had some setbacks and has not been ?as consistent as I?d like? with using her coping skills. Pt has not followed through with outpatient counseling and she is not currently on any medications. Pt does report using opposite action which has helped pt get out of a ?dark hole? much faster than in the past. Pt engaged in the discussion about self-love and participated in the experiential activity that highlighted the acceptance component of self-love. Reports wanting to work on self-love by using the journal prompt of ?write a letter to your younger self and provide comfort and support.? Seemed to benefit from reviewing treatment progress and strategies for managing current stressors, as well as learning about how to increase self-love. Pt to continue IOP aftercare tx to promote mood stability, reinforce gains made in IOP, and review coping skills from IOP. Narrative Note: []
--- NOTE | 2023-12-12 14:00 | BH.SGPN.GN ---
Behaviors/Verbalizations/Mental Status: []Pt alert and oriented, casually dressed and groomed. Eye contact good. Motor activity appropriate. Speech within normal limits. Affect congruent, mood content. Thoughts linear, logical, no signs of hallucinations or delusions. Client Response/Progress/Benefit: []Pt responded well to session AEB sharing and listening attentively to others. Pt has been consistent with her medication compliance; however reports she does not have an outpatient therapist. Pt is not interesting in establishing with outpatient counseling at this time. Pt reports using positive self-talk, opposite action, and reaching out to supports to help with managing her mental health symptoms. Pt participated in group discussion defining affirmations and why they are important. Pt provided insight throughout clinician?s presentation of tips for writing personal affirmations and wrote her own affirmations, including ?I am capable of advocating for my wants and needs?. Pt appeared to benefit from increased knowledge of affirmation writing skills and creating her own affirmation statements to remind herself of outside tx environment. Will continue aftercare tx to promote consistent mental health maintenance and prevent decompensation. Narrative Note: []
--- NOTE | 2023-12-19 14:00 | BH.SGPN.GN ---
Behaviors/Verbalizations/Mental Status: []Pt alert and oriented, casually dressed and groomed. Eye contact good. Motor activity appropriate. Speech within normal limits. Affect congruent, mood euthymic. Thoughts linear, logical, no signs of hallucinations or delusions. Client Response/Progress/Benefit: []Client stated she still doesn't have an outpatient therapist. Therapist encouraged client to reach out to schedule appointment. Client agreed it would be helpful for her to have an individual therapist. Client reported she has been struggling this last week, but has been using her skills to try and manage skills. Client stated she completed homework from last week of saying affirmations daily. Client attentive to psychoeducation about gratitude and provided contributions throughout. Client created her gratitude plan for the week. Pt to continue IOP to maintain gains, establish with outpatient counseling, and prevent decompensation.
== END 2023-12-25 23:59 ==
LOC: BHOG 09:00
PROVIDERS: PCP Nurse Practitioner Family; Referring Provider Psychiatry & Neurology Psychiatry; Visit Provider Psychiatry & Neurology Psychiatry
DX: F31.81 Bipolar II disorder (principal); F43.10 Post-traumatic stress disorder, unspecified; F41.0 Panic disorder [episodic paroxysmal anxiety]
CPT/HCPCS: 90853

== ENCOUNTER 2023-12-26 08:03 | Outpatient (RCR) | payer MEDICAID, SELFPAY ==
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
--- NOTE | 2024-01-16 13:49 | BH.MTP_ITS ---
Treatment Plan Review Demographics Date of Admission:: 12/05/23 Date of Treatment Plan Review:: 01/02/24 Admitting Diagnoses:: Bipolar, NOS F31.81; Panic disorder; PTSD; Strong cluster B traits Current Diagnoses:: Bipolar, NOS F31.81; Panic disorder; PTSD; Strong cluster B traits Patient Status Patient's Response to Treatment:: Pt continues to respond well to treatment AEB pt's consistent attendance, ongoing attentiveness and engagement in group discussions, and attempting to use of skills outside treatment environment reporting some difficulty with consistency. Pt's symptoms are still 64% lower th an they were at IOP admission. Status of Current Problems and Symptoms: Client is reporting improved ability to get self out of down moods faster when she uses her skills. Client had reported rougher week with increased stressors and having to use lots of skills to manage her mental health. Client has reported continued decrease in her depressed symptoms. Client continuing to report mild anxiety symptoms. Progress Problem #1: Problem Name:: Pt will maintain or see reduction in sx. Status of Goals:: Obj 1 - complete with ongoing work encouraged. Pt's DSM 5 scores for depression are 50% lower than they were at IOP admission and anxiety is still 38% lower compared to IOP admission. Obj 2 - complete with ongoing work encouraged. Pt reports actively using healthy coping skills like positive self-talk, opposite action, and reaching out to supports. Did share some weeks she has variable use of skills. Team Recommendations:: Recommended client continue IOP aftercare group in addition to attending regular outpatient counseling in order to maintain gains. Pt also recommended to continue working on consistent use of skills and challenging negative thoughts.
--- NOTE | 2024-01-16 14:00 | BH.SGPN.GN ---
Behaviors/Verbalizations/Mental Status: []Pt alert and oriented, neatly dressed and groomed. Eye contact good. Motor activity appropriate. Speech within normal limits. Affect congruent, mood irritable and depressed. Thoughts linear, logical, no signs of hallucinations or delusions. Client Response/Progress/Benefit: []Pt receptive of session, engaged throughout. Pt reports she is doing ?pretty well? but pt still has not found an outpatient therapist. Pt has been consistent with her medications. Pt reports use of opposite action, exercising, delay, distract, decide, and being vulnerable to cope with stressors. Receptive of discussion on personal accountability and its importance in maintaining mental health stability. Engaged in brainstorming strategies for improving ability to hold themselves accountable and participated in the activity. Pt admitted that the activity elicited frustration and stress, but pt did not give up. Reported wanting to work on being more organized with appointments. Pt feels she is more likely to follow through with a goal is she has an accountability marianela. Pt seemed to benefit from support from peers and increasing understanding of personal accountability benefits and strategies. Will continue IOP aftercare group to maintain gains and prevent decompensation. Narrative Note: []
--- NOTE | 2024-01-29 13:50 | BH.COMM ---
Communication Note Communication with Client Communication Note: Discussed case with Dr. Solorzano. Dr. Solorzano continues order for client to continue [facility] Aftercare with a diagnosis of
== END 2024-01-23 23:59 ==
LOC: BHOG 08:03
PROVIDERS: PCP Nurse Practitioner Family; Referring Provider Psychiatry & Neurology Psychiatry; Visit Provider Psychiatry & Neurology Psychiatry
DX: F31.81 Bipolar II disorder (principal); F43.10 Post-traumatic stress disorder, unspecified; F41.0 Panic disorder [episodic paroxysmal anxiety]
CPT/HCPCS: 90853

== ENCOUNTER 2024-01-24 07:00 | Outpatient (RCR) | payer MEDICAID, SELFPAY ==
--- NOTE | 2024-02-06 14:00 | BH.SGPN.GN ---
Behaviors/Verbalizations/Mental Status: []Pt alert and oriented, casually dressed and groomed. Eye contact good. Motor activity appropriate. Speech within normal limits. Affect congruent, mood euthymic. Thoughts linear, logical, no signs of hallucinations or delusions. Client Response/Progress/Benefit: [] Pt receptive of session, engaged throughout. Pt shared meeting with outpatient psychiatrist this week and has been consistent with meds. Reports the coping skills used throughout the week included: non-zero days, self-compassion, and thought challenging. Receptive of discussion on the three components of the Wellness [place] (social, mental health, and physical) and the importance of balancing each of these areas. Pt contributed to the discussion on the variables impacting each area of wellness including: biology, environment, attitude, behavior, technology, and social support network. Completed an assessment reviewing personal wellness in each pillar of the wellness triangle. Identified wanting to work on social wellness by being more consistent with her boundaries and practice saying no when tempted to engage in people pleasing behaviors. Pt seemed to benefit from support from peers and increasing understanding of the relationship between different areas of wellness. Will remain in the aftercare program to maintain gain and prevent decompensation. Narrative Note: []
--- NOTE | 2024-02-13 14:00 | BH.SGPN.GN ---
Behaviors/Verbalizations/Mental Status: []Pt alert and oriented, neatly dressed and groomed. Eye contact good. Motor activity appropriate. Speech within normal limits. Affect congruent, mood euthymic. Thoughts linear, logical, no signs of hallucinations or delusions. Client Response/Progress/Benefit: [] Pt receptive of session, engaged throughout. Pt did not have an appointment with a therapist this week. Pt has been consistent with taking meds and using coping skills. These skills included: venting to a support, breathing, organizing her appointments, and using self-talk. Receptive of discussion on sitting with the uncomfortable and emotional urges. Pt contributed to the discussion of distress tolerance and how building distress tolerance can help improve mood stability and resilience. Pt looked at a recent situation that was distressing and wrote out low distress tolerance and high distress tolerance responses. Pt wants to work on taking her dog for a longer walk and going for drives to sit with the uncomfortable. Pt seemed to benefit from support from peers and increasing understanding of distress tolerance. Will discharge from [facility] aftercare as pt has successfully completed the 8-week program and accomplished tx goals. Narrative Note: []
--- NOTE | 2024-02-13 15:40 | BH.DS_ITS ---
Discharge Summary Demographics Date of Admission:: 12/05/23 Discharge Date: 02/13/24 Presenting Problems at Admission:: Pt discharged from IOP tx and transitioned to IOP aftercare to maintain gains pt made in IOP and to reinforce healthy coping skills. At admission to IOP aftercare, pt continued to report symptoms of depression and anxiety, but of reduced intensity. Pt needing to continue to work on combating negative self-talk, mindfulness, and setting boundaries. Discharge Diagnoses:: 1.Bipolar, NOS F31.9 2. Panic disorder 3. PTSD 4. Strong cluster B traits Reason for Discharge:: Pt has accomplished tx goals AEB ability to maintain mood stability and gains made in IOP. Pt's DSM-5 scores are 49% less than at to IOP admission. Pt will transition to traditional outpatient counseling. Treatment Progress During Treatment & Response: Pt responded well and made progress in IOP aftercare as evidenced by pt's participation in group discussions and self- report of applying coping skills. Pt's overall DSM-5 scores decreased by 49% from IOP admission. Pt?s depression decreased by 25% since original IOP admission, pt's scores for anxiety decreased by 38%, and irritability decreased by 67% compared to original IOP scores. Additionally, at discharge pt reported more balanced outlook on life. Issues Still to be Addressed:: Combating negative self-talk, mindfulness, and setting boundaries. Discharge Recommendations/Instructions:: Patient will follow up with Dr. Cortez for medication management. Pt had been encouraged throughout aftercare to establish with an individual counselor and she did not follow through. Pt is established with parenting classes, which she identifies as a source of support through the center. Discharge Handout
== END 2024-02-17 07:09 | disposition home or self-care (01) ==
LOC: BHOG 07:00
PROVIDERS: PCP Nurse Practitioner Family; Referring Provider Psychiatry & Neurology Psychiatry; Visit Provider Psychiatry & Neurology Psychiatry
DX: F32.A Depression, unspecified (principal); F41.9 Anxiety disorder, unspecified
CPT/HCPCS: 90853

== ENCOUNTER 2024-07-20 08:00 | Outpatient (RCR) | payer MEDICAID, SELFPAY ==
--- NOTE | 2024-07-20 10:10 | BH.SGPN.GN ---
Behaviors/Verbalizations/Mental Status: []Pt alert and oriented, neatly dressed and groomed. Eye contact good. Motor activity appropriate. Speech within normal limits. Affect congruent, mood anxious and euthymic. Thoughts linear, logical, no signs of hallucinations or delusions Client Response/Progress/Benefit: [] Pt was an active participate AEB listening attentively to others, participating in group discussions, and taking notes throughout. Participated as the group identified ways we can hurt others or sabotage self by not regulating our emotions. Participated with peers to identified ways emotions impact communication which pt shared she tends to shut down, lash out, or make assumptions when emotions get too high. Participated during group activity. Pt benefited from session by gaining an increased understanding on the importance of managing emotions to improve daily functioning. Will continue IOP tx to prevent decompensation, improve daily functioning, and reduce negative thinking patterns. ??? Narrative Note: []
--- NOTE | 2024-07-20 11:10 | BH.SGPN.GN ---
Behaviors/Verbalizations/Mental Status: []Pt alert and oriented, casually dressed and fairly groomed. Eye contact good. Motor activity appropriate. Speech within normal limits. Affect congruent, mood euthymic and anxious. Thoughts linear, logical, no signs of hallucinations or delusions. Client Response/Progress/Benefit: [] Pt engaged in session AEB Pt listening attentively to peers and providing input. Attentive during psychoeducation on 4 zones of regulation. Pt able to identify feelings and behaviors for each zone. Pt identified coping skills one can use to support self in each zone. Identified being in the yellow zone today ?but in a good way? as pt shared she is both anxious and excited. Pt feels she could benefit from using her increased energy today to clean her house as this will help ?my future self.? Benefited from increased education on zones of regulation or stages of alertness for emotions and healthy coping skills to use for each zone. Will continue IOP tx to prevent decompensation, improve daily functioning, and reduce negative thinking patterns. Narrative Note: []
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
--- NOTE | 2024-07-20 14:22 | BH.COMM_ITS ---
Communication Note Communication with Client Communication Note: Met with pt to complete psychosocial, risk assessment, and initial paperwork. Completed [place] Suicide Screening. Low risk. Consulted with Dr. Monique with plan to admits to IOP with dx of Major depressive disorder, recurrent, severe without psychosis F33.2.
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
--- NOTE | 2024-07-22 10:50 | BH.NA_ITS ---
Physical Data Vital Signs Pulse Rate: 71 Blood Pressure: 152/99 Height/Weight Height: 1.6 m Weight:: 99.79 kg Weight in Pounds: 220.0 lbs Current Medication Compliance Medication Compliance Do you take your medication as prescribed?: Yes Nutritional History Appetite Nutritional Instructions: Describe your appetite:: Good Additional nutritional information:: Client states she has gained 20-50lbs since she was in [facility] in October 2023, and states she is trying to lose weight. Functional Assessment Sleep Pattern Describe any problems with sleeping: Client states she sleeps about 4-6 hours per night and states she at times takes naps during the day. Sensory/Communication Assess Vision Problems Do you have any vision problems?: Glasses Medical Problems/History Neurological Conditions Neurological: Headaches Pain Assessment Do you have acute or chronic pain?: No Family History Family History Mother Autoimmune disorder Lupus Fibromyalgia Colitis Cardiomyopathy Scoliosis Other Anxiety Bleeding disorder Blood clot in vein Depression Heart disease Mental disorder Seizures Surgical History Surgical History Have you had any surgeries? If so, list type and date:: Yes () Substance Abuse Substance Abuse Please describe substance abuse in the last 30 days:: Client denies alcohol use. Client states she has vaped nicotine since about age 13. Client denies substance use. Client states she normally does not drink caffeine at home, but does have coffee while here at [facility]. Mental Status Summary Mental Status Significant Findings/Observations on Appearance and Mood:: Client is alert and oriented x 4. Client is casually groomed. Client is cooperative with assessment. Client makes good eye contact. Client's voice has normal rate and volume. Client has appropriate affect. Client makes logical associations and has normal processing. Client denies delusions/hallucinations. Client denies SI, but does admit to passive ideas of wishing this emotional pain would . Suicide Assessment Suicidal Ideation Are you currently or have you been suicidal in the past?: Yes Suicidal Intentional Rating Scale (SIRS): Suicidal thoughts (past) Physician Notification Past Psychiatric History MH Treatment Hx Past Psychiatric Medications:: Abilify, Celexa, Zoloft, Cymbalta, Zyprexa, Prozac Age of first mental health symptoms: Client states she has been going to counseling off and on since 2nd grade, and has been on medication for mental health off and on since she was 10. Describe (age, circumstance, etc) any past hospitalizations: None. Current providers for mental health treatment (counselor, psychiatrist, ed case manager, etc.): Dr. Cortez for psychiatry Fall Risk Assessment Age Age: Less than 60 Mental Status Mental Status: Willing & able to ask for assistance when needed Physical Status Physical Status: No problems Impairments Impairments: None Elimination Elimination: Continent AND independent Gait or Balance Gait or Balance: Walks independently Hx of Falls History of falls in the past 6 months: No known history Medications/Substances Psychotropics:: Antidepressants and Antipsychotics Medications/substances used within the past 24 hours or ordered to administer: 1-2 of the medications/substances listed above Total Score Total Points:: 1 RN Summary of Impressions Impressions Recommendations Impressions: Psychiatric Issues: PTSD (post-traumatic stress disorder) Panic disorder Bipolar disorder, unspecified MDD (major depressive disorder) Level of Care How do the client's current symptoms and functional deficits support need for this level of care?: Client was in IOP from August to October of 2023, and has returned at this time due to a decline in her mental health. Client reports panic attacks weekly, decreased motivation, erratic sleep, and feeling of constant worry. Client states since she was in IOP in 2022, she lived with her mom in [place] for some time and that caused a strain on her relationship with her boyfriend. Client states she has not had a job for about 1.5 months and is living with her boyfriend again and attempting to work on their relationship issues. Client is feeling constantly worried about caring for her daughter alone, and her boyfriend has been taking their daughter to his parents while he is at work. Client states she wants to feel better and be able to take care of my daughter myself, because that's my job. IOP will promote gains and prevent further decompensation while providing social support and skills training.
--- NOTE | 2024-07-22 11:10 | BH.SGPN.GN ---
Behaviors/Verbalizations/Mental Status: []Pt alert and oriented, casually dressed and groomed. Eye contact good. Motor activity appropriate. Speech within normal limits. Affect congruent, mood anxious and depressed. Thoughts linear, logical, no signs of hallucinations or delusions. Client Response/Progress/Benefit: []Pt was attentive and contributed to group discussion. Pt worked with group to identify strategies that can help with challenging negative perspective. Pt completed strengths exploration worksheet, identifying love of learning, social awareness, and flexibility as personal strengths. Pt able to acknowledge how these strengths are helping pt and can continue to help pt in mental health journey. Pt identified wanting to work on leaning on strength of love of learning to practice learning more about topics or people she does not fully understand. Benefited from identifying personal strengths and strategies for enhancing use of identified strengths. Pt will continue IOP tx to improve mood stability, encourage skill application and prevent decompensation. Narrative Note: []
[2024-07-22 11:53] VITALS: BP 152/99; PULSE 71
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
--- NOTE | 2024-07-22 12:59 | BH.DR.ITP ---
Initial Treatment Plan Patient Information Visit Information: ADMISSION DATE: EXPECTED LOS: 4-6 weeks Problems/Symptoms Problem #1:: Depression Symptom:: Sadness, low motivation, biological disruption of sleep, worthlessness, hopelessness, anhedonia, desire to just disappear Problem #2:: Anxiety Symptom:: Worry, panic attacks, avoidance, flashbacks, reexperiencing, nightmares and avoidance
--- NOTE | 2024-07-24 09:00 | BH.SGPN.GN ---
Behaviors/Verbalizations/Mental Status: [] Eye contact is good. Motor activity is appropriate. Appearance is casual. Speech is Appropriate. Mood is depressed. Affect is flat. Thoughts are linear and logical. No evidence of psychosis. Reviewed daily check in sheet and no reports of suicidal ideations or intent. Client Response/Progress/Benefit: [] Pt participated at times during the group discussion. Attentive. Daily symptom tracker notes 11/29 for depression, anxiety, and irritability. She began to discuss stress and anxiety related to medication change yesterday. Concerns it will increase drowsiness leading to increased sleep and decreased energy. She was able to utilize opposite action yesterday as she didn't just sit at home and pace. Shared that she went for a walk with her daughter. Able to identify how this improved her mental health, spent time with daughter, and overall decreased her ruminations. Normally I would just pace around the house. Challenging perspectives and reframing thoughts. Progress noted. Benefited from group support, encouragement, and feedback. Will continue in IOP to maintain safety, prevent decompensation, stablize mood, and improve functioning. Narrative Note: []
--- NOTE | 2024-07-24 10:10 | BH.SGPN.GN ---
Behaviors/Verbalizations/Mental Status: []Pt alert and oriented, casually dressed and groomed. Eye contact good. Motor activity appropriate. Speech within normal limits. Affect congruent, mood anxious, euthymic. Thoughts linear, logical, no signs of hallucinations or delusions. Client Response/Progress/Benefit: [] Pt responded well to session, contributing to discussion, and engaged during the activity. Group identified the benefits of change which included: increased confidence, improving mental health, and personal growth. Worked with the group to identify barriers to change, which included: uncomfortable emotions such as anxiety and fear, lack of awareness of how to make changes, worried about what others will think, and fear of the unknown. Pt participated along with group in activity where they identified and discussed the emotions related to change. Pt connected with peers that one can have many conflicting emotions when faced with change and shared struggling with feeling anxious about her ability to manage change in healthy ways which has led to avoidance in the past. Benefited from increased awareness and understanding of emotions, benefits, and barriers related to change. Will continue IOP tx to improve healthy coping, improve daily functioning, challenge distorted thoughts, and prevent decompensation. Narrative Note: []
--- NOTE | 2024-07-24 11:10 | BH.SGPN.GN ---
Behaviors/Verbalizations/Mental Status: []Client alert and oriented, casually dressed and groomed. Eye contact good. Motor activity appropriate. Speech within normal limits. Affect congruent, mood euthymic. Thoughts linear, logical, no signs of hallucinations or delusions. Client Response/Progress/Benefit: [] Pt responded well to session, attentive throughout. Did well to actively listen and contributed when prompted as group worked to process activity. Pt worked with group to relate the strategies used to overcome barriers in the activity to managing change in own life. Pt identified a change they would like to make is being more honest and vulnerable with supports. Pt identified currently being in preparation/action stage for this change. Pt said writing her genuine thoughts down and looking at why she wants to do this can help pt get to the next stage. Appeared to benefit from identifying a change they want and how to progress. Pt will continue IOP tx to prevent decompensation, improve daily functioning, and increase use of healthy coping skills. ? Narrative Note: []
== END 2024-07-25 23:59 ==
LOC: BHIOP 08:00
PROVIDERS: PCP Nurse Practitioner Family; Visit Provider Psychiatry & Neurology Psychiatry
DX: F33.2 Major depressive disorder, recurrent severe without psychotic features (principal); F41.0 Panic disorder [episodic paroxysmal anxiety]; F43.10 Post-traumatic stress disorder, unspecified; Z79.899 Other long term (current) drug therapy
CPT/HCPCS: H2012; H2020; S9480; 90832

== ENCOUNTER 2024-07-28 07:11 | Outpatient (RCR) | payer MEDICAID, SELFPAY ==
[2024-07-26 00:57] VITALS: BP 152/99; PULSE 71
--- NOTE | 2024-07-29 09:00 | BH.SGPN.GN ---
Behaviors/Verbalizations/Mental Status: [] Pt alert and oriented, casually dressed and groomed. Eye contact good. Motor activity appropriate. Speech within normal limits. Affect congruent, mood euthymic. Thoughts linear, logical, no signs of hallucinations or delusions. Reviewed pt?s symptom tracker, no risk for suicidal ideation, plan, or intent 07/29/24 Client Response/Progress/Benefit: []Pt responded well to session, attentive and engaged. Pt reports feeling conflicted this morning. Pt reports mental health wins today including getting the chance to go on a trip with her brother and spending time out of the house and interacting with people. Pt's stressor today is she has decided to go to [place] with her brother, but pt is afraid of flying. Pt shared she has thought about what she could do to help reduce anxiety for the trip and pt has a plan. Pt appeared to benefit from connecting with peers and gaining feedback. Pt will continue IOP tx to promote mood stability, reduce isolation and avoidance, and improve daily functioning. Narrative Note: []
--- NOTE | 2024-07-29 10:10 | BH.SGPN.GN ---
Behaviors/Verbalizations/Mental Status: [] Eye contact is good. Motor activity is appropriate. Appearance is casual. Speech is Appropriate. Mood is depressed. Affect is congruent. Thoughts are linear and logical. No evidence of psychosis. Client Response/Progress/Benefit: [] Pt was an engaged participant AEB listening attentively to others, taking notes, and providing feedback in small group discussions. Attentive during psychoeducation AEB by note taking and providing some input. Pt worked along with peers in small groups to define inappropriate guilt and appropriate guilt. Interactive discussion on examples of both inappropriate and appropriate guilt. Worked well in small group with peers where they identified example of inappropriate vs appropriate guilt and the impact inappropriate guilt can have on MH. Benefited from increased awareness of guilt and the differences between appropriate and inappropriate guilt. Plan is to continue in IOP to prevent decompensation, increase healthy coping, and improve functioning. Narrative Note: []
--- NOTE | 2024-07-29 11:10 | BH.SGPN.GN ---
Behaviors/Verbalizations/Mental Status: []Pt alert and oriented, casually dressed and groomed. Eye contact good. Motor activity appropriate. Speech within normal limits. Affect congruent, mood content. Thoughts linear, logical, no signs of hallucinations or delusions. Client Response/Progress/Benefit: []Pt engaged participant AEB listening attentively to others and providing input throughout group. Pt worked within their small group to identify strategies to manage inappropriate guilt. Identified a personal example of inappropriate guilt as ?feeling bad her fiances car is messed up?. Provided insight that this cues a feeling of ?responsibility for his emotions? Pt wants to work on combatting inappropriate guilt by correcting the distortions and practicing better communication with supports. Pt seemed to benefit from learning about strategies to manage appropriate and inappropriate guilt. Pt to continue IOP level of care to continue to prevent decompensation, and promote mood stability. ? Narrative Note: []
--- NOTE | 2024-07-29 16:25 | BH.MDN ---
Multi-Disciplinary Note Note 30-min Individual: Time Started:: 11:45 Date: 07/29/24 Purpose of session/treatment goals addressed:: Purpose of session was to address goals 1 and 2 from MTP. Eye Contact:: Good Motor Activity:: Appropriate Appearance:: Casual Speech:: Appropriate Mood:: Anxious and Dysthymic Affect:: Constricted Thoughts:: Linear, Logical and No evidence of hallucinations/delusions noted Staff Interventions:: thought challenging, motivational interviewing, CBT techniques, strengths perspective, goal setting and taught coping skills Client Response:: Client reported current stressor as being asked to go with her brother to [place] for a convention. Client stated she is going to go even though she is anxious because her brother has to have someone that is over age 18 in order for him to go. Client reported she has never been to [place] and is scared to fly in an airplane. Client reported although she is anxious about the trip she does think it will be good to get away and work on her relationship with her brother. Client stated she has been doing somewhat better with getting chores and tasks done around the house. Client reported she has been working on managing her anxiety by using breathing skills and grounding tools. Client stated she has decreased anxiety when alone with her daughter. Client reported her daughter is still going to her [employer] house when her [employer] is at work. Client stated she would like to work on being able to drive because it would help her not feel so stuck at home. 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 Client stated she has slight improvement in mood however endorses low motivation, low energy, anhedonia, and difficulty concentrating. Client identified goal is to be alone with her daughter for at least an hour longer than usual. Client reported she will work on challenging anxious thoughts about worst case scenario about what could happen to her daughter. Risks/Concerns:: Denies suicidal thoughts, plans, or intention to date. future oriented. Progress Toward Goals/Plan:: Progress noted with client reporting slight improvement with her mood over the last week and feeling slightly less anxious when being alone with her daughter. Client still has her daughter go to her [employer]?s parents when her fianc? is at work due to her anxiety. Client continues to endorse depressed mood with low motivation, low energy, and anhedonia. Client is to continue IOP to increase consistent use of healthy coping skills, decrease anxious avoidance, and prevent decompensation. Time Stopped:: 12:10
--- NOTE | 2024-07-31 09:00 | BH.SGPN.GN ---
Behaviors/Verbalizations/Mental Status: [] Eye contact good. Motor activity appropriate. Speech within normal limits. Affect congruent, mood irritable, dysthymic. Thoughts linear, logical, no signs of hallucinations or delusions. Reviewed client?s symptom tracker, pt denies SI,?plan, or intent as of 07/31/2024. Client Response/Progress/Benefit: [] Client receptive of session, attentive and willing to process with group. Identified mental health ?win as coming to group today despite wanting to do other things. Shared that her fiance is getting lunch with pt's family and she is sad she will be missing out on this. Did well to remind herself of the importance of taking time to focus on her mental health. Additional win is being able to reframe a current stressor. Pt explained that she is supposed to help care for a family member with dementia this weekend and is not looking forward to this as she is anxious about what it will entail. Did well however to reframe and remind herself that she will have free time to read and that they have a pool she will be able to use. Identified several skills she can use if feeling overwhelmed as well. Receptive of and appearing to benefit from group feedback and suggestions. Recommended continued IOP tx to maintain mood stability, promote consistent skill application, well as prevent decompensation. Narrative Note: []
--- NOTE | 2024-08-03 09:00 | BH.SGPN.GN ---
Behaviors/Verbalizations/Mental Status: [] Pt alert and oriented, neatly dressed and groomed. Eye contact good. Motor activity appropriate. Speech within normal limits. Affect congruent, mood euthymic. Thoughts linear, logical, no signs of hallucinations or delusions. Reviewed pt?s symptom tracker, no risk for suicidal ideation, plan, or intent 08/03/24 Client Response/Progress/Benefit: []Pt responded well to session, attentive and engaged. Pt reports feeling zazzed this morning as pt feels she is accomplishing tasks in her apartment and she was able to go to the fair and had a good time. Pt shared she is feeling stressed about an upcoming inspection for her apartment, but pt was able to challenge distortions and the group also offered reassurance. Pt appeared to benefit from reflecting on application of coping skills and connecting with peers. Pt will continue IOP tx to promote mood stability, increase self-confidence, and reduce negative thinking patterns. Narrative Note: []
--- NOTE | 2024-08-03 10:15 | BH.SGPN.GN ---
Behaviors/Verbalizations/Mental Status: [] Eye contact is good. Motor activity is appropriate. Appearance is casual. Speech is Appropriate. Mood is content. Affect is congruent. Thoughts are linear and logical. No evidence of psychosis. Client Response/Progress/Benefit: [] Pt receptive of session, actively engaged throughout AEB taking notes, providing input, and contributing in small group discussion. Appeared to connect with group topic of automatic thoughts and cognitive distortions, as well as the impact of thought patterns on mental health, coping behaviors, and relationships. This particular group is very heavy on psychoeducation and pt appeared to connect with distortions and how they can impact functioning. Identified struggling with disqualifying the positive and predicting the future distortions. Pt appeared to benefit from gaining insight on distorted thinking patterns and how this impacts overall mental health. Will continue IOP to stabilize mood, improve ability to function, and prevent decompensation. Narrative Note: []
--- NOTE | 2024-08-03 11:15 | BH.SGPN.GN ---
Behaviors/Verbalizations/Mental Status: []Pt alert and oriented, casually dressed and groomed. Eye contact fair. Motor activity appropriate. Speech within normal limits. Affect constricted, mood dysthymic. Thoughts linear, logical, no signs of hallucinations or delusions Client Response/Progress/Benefit: [] Pt was an active participant during group discussion. Pt was placed in a smaller group and participated in combatting example distortions with peers. Pt was engaged in the smaller group, participated in group interactions to brainstorm answers, and appeared to be comprehending cognitive distortions. Pt stated could connect with many of the distortions covered in group. Pt stated she has learned from group today importance of challenge distorted thoughts because there is often a different perspective. Benefited from gaining further insight and awareness of cognitive distortions as well as practicing ways to reframe and challenge thoughts. Will continue in IOP tx to increase follow through on goals, decrease anxious avoidance, and prevent decompensation.
--- NOTE | 2024-08-05 09:00 | BH.SGPN.GN ---
Behaviors/Verbalizations/Mental Status: [] Eye contact good. Motor activity appropriate. Speech within normal limits. Affect congruent, mood euthymic and anxious. Thoughts linear, logical, no signs of hallucinations or delusions. Reviewed client?s symptom tracker, pt denies SI,?plan, or intent as of 08/05/2024. Client Response/Progress/Benefit: [] Client receptive of session, attentive and willing to process with group. Reports improving sx of depression?(1/5) and anxiety (1/5) per daily sx tracker. ?Identified mental health ?win as taking time to deep clean the entire house. Reported having to use opposite action to motivate herself to get started, but feels accomplished and proud of herself as a result. Reported deep cleaning because they are having an inspection today and pt is anxious about this. Shared primary anxiety is related to fears that the inspection is because the owners are planning to sell. Did well to challenge her what if thoughts. and notes trying to focus on being present and what is in her control. Identified an additional win as getting to see her daughter today and plans to go with her to the [facility] fair. Receptive of and appearing to benefit from group support. Recommended continued IOP tx to maintain mood stability, promote consistent skill application, well as prevent decompensation. Narrative Note: []
--- NOTE | 2024-08-05 11:10 | BH.SGPN.GN ---
Behaviors/Verbalizations/Mental Status: []Pt alert and oriented, casually dressed and groomed. Eye contact good. Motor activity appropriate. Speech within normal limits. Affect congruent, mood euthymic. Thoughts linear, logical, no signs of hallucinations or delusions. Client Response/Progress/Benefit: [] Pt responded well to session, taking notes and participating in worksheet discussion. Pt connected with the discussion on motion vs action steps, and this helped pt learn how to set goals differently. Pt set a goal to reduce people pleasing. Pt identified motion steps including reflecting on what is bothering her, identifying her boundaries, and reminding herself it is okay to say no. Pt also made action steps which included communicating those insights and sticking to her boundaries. Appeared to benefit from identifying a small goal to benefit mental health. Pt is to continue IOP to prevent decompensation, reduce isolation and avoidance, and increase boundary setting skills. ?? Narrative Note: []
--- NOTE | 2024-08-05 12:09 | PCM.BH.PN_ITS ---
Progress Note Progress Note: History of Present Illness/Interim History: The patient is a 18-year-old engaged female with a history of depression, erratic moods, panic disorder, PTSD and cluster B traits who is seen in follow-up at the [facility] behavioral health [facility]. I last saw the patient 2 weeks ago and she saw her outpatient provider, Dr. Cortez, the next day and he increase the Vraylar to 3 mg daily. The patient states that she feels better and is tolerating the medication dose change well but has noticed some fatigue. She feels she is benefiting from the IOP and learning valuable skills to help manage her mental health issues. She denies any panic attacks in the past week and has been using relaxation skills to abort them. She feelings that she is able to be alone a little better than before she started the program. She is trying not to nap during the day and is sleeping about 5 to 6 hours a night now. Sleep study was ordered by Dr. Cortez as recommended by us also. The patient had 1 self-harm thoughts today and that was the only time in the past 2 weeks but she states that it discussed that her and she has not engaged in any self-harm. She endorses some depression symptoms still but denies passive thoughts of , suicidal ideation, plan for suicide, homicidal ideation, hallucinations or delusions. She is still a worrier by nature but panic attacks have lessened. She is hopeful that she will be able to care for her 1-year-old daughter better as she continues to improve. Current Psychiatric Medications: [] Lexapro 20 mg p.o. daily; Vistaril 25 mg p.o. as needed 3 times a day; Vraylar 3 mg p.o. daily (dose increased 2 weeks ago). Mental Status Examination: [] The patient is a 18-year-old female who appears normal for stated age and is seen wearing glasses and is obese and is casually dressed and groomed with good hygiene. She has no psychomotor agitation or retardation and is ambulatory with a normal gait. Eye contact is good and speech is somewhat quiet but normal rate and rhythm and no pressure. Mood is depressed. Affect is constricted. Thought process is goal-directed and organized. Thought content: The patient is hopeful that she will continue to improve. There is no evidence of passive thoughts of , suicidal ideation, homicidal ideation, hallucinations or delusions. Reality testing is intact. Judgment is intact. Insight is fair and improving. Impulsivity is high. Diagnoses: [] 1. Major depressive disorder, recurrent, severe without psychosis 2. Panic disorder 3. PTSD 4. Strong cluster B traits 5. Primary support, financial and work issues Plan: [] The patient will continue the [facility] and behavioral health at [facility] as the structure, support, education and group therapy will hopefully prevent worsening of the patient's symptoms which could require hospitalization. She felt safe during the interview and if it anytime she does not feel safe she agrees to let us know or go to the emergency room. No medication changes were made today as they were changed 2 weeks ago. In elif tion a sleep study was scheduled for the patient. She will continue to try not to take naps during the day. She will continue to follow-up with her outpatient providers and I will see the patient in follow-up in 2 weeks.
--- NOTE | 2024-08-05 16:31 | BH.MDN_ITS ---
Multi-Disciplinary Note Note 30-min Individual: Time Started:: 10:15 Date: 08/05/24 Purpose of session/treatment goals addressed:: Purpose of session was to address goals 1 and 2 from [facility]. Eye Contact:: Good Motor Activity:: Appropriate Appearance:: Casual Speech:: Appropriate Mood:: Dysthymic Affect:: Constricted Thoughts:: Linear, Logical and No evidence of hallucinations/delusions noted Staff Interventions:: thought challenging, motivational interviewing, CBT techniques, strengths perspective, goal setting and taught coping skills Client Response:: Client reported she was experiencing increased anxiety for about 5 days because she found out her apartment was going to have an inspection. Client stated she was worried about having someone inspect their apartment and anxious the local owner operator truck driver is doing inspections so can sell the apartment complex. Client reported she doesn't have any evidence to support that the local owner operator truck driver is looking to sell the apartment complex. Client responded well to thought challenge and reframing anxious thoughts. Client stated she is feeling a little better now because her fianc? stated the inspection is over and it went well. Client stated she also has been more irritable over the past week. Client reported when irritable she doesn't feel like being touched and this can lead to a argument with her fianc?. Therapist had client role play in session what she could say to woodrow? to communicate how she is feeling and what she needs when irritable. Client reported she has been doing better recently with interrupting her anxious spiral. Client stated she recognizes she needs to get out of her apartment more often. Client reported her goal for the week is to get out of her apartment to sit outside and take at least 3 walks. Client reported she has been able to have her daughter overnight when she was on her own a couple of times in the last week and overall stated she did well with managing her anxiety. Client stated she wants to continue working on improving ability to take care of daughter independently with decreased anxiety. Risks/Concerns:: Denies suicidal ideation, plan, or intention to date. Progress Toward Goals/Plan:: Decompensation noted with client reporting recent increase in anxiety and irritable over the last week. Client reported starting to feel slightly less anxious now that one of her stressors has been taken care of now. Client responded well to practicing communication skills in session. Client stated her anxiety impacts ability to be direct with others in how she is feeling and what she needs. Client recognizes being passive could negatively impact her self-esteem. Plan is for client to continue IOP to increase use of coping skills, follow through on goals, and prevent decompensation. Time Stopped:: 10:45
--- NOTE | 2024-08-07 09:00 | BH.SGPN.GN ---
Behaviors/Verbalizations/Mental Status: [] Eye contact is good. Motor activity is appropriate. Appearance is casual. Speech is Appropriate. Mood is euthymic. Affect is full. Thoughts are linear and logical. No evidence of psychosis. Reviewed daily check in sheet and no reports of suicidal ideations or intent. Client Response/Progress/Benefit: [] Pt participated at time during the group discussions. Attentive. Daily symptom tracker notes 11/29 for anxiety and 11/29 for agitation. Emotion for today is feeling pretty good. Able to identify mental health wins which include cleaning apartment, exercising, and not napping. Utilizing opposite-action throughout the day which has helped with mood, energy, and overall sleep. According to pt she was sleeping throughout the day causing her to stay up late and sleep less at time. Recognizes that this cycle was impacting her mood, energy, motivation, engagement, relationships, and overall mental health. She is also identifying and challenging negative thoughts rather than trying to escape through unhealthy coping such as sleep. Benefited from group support, encouragement, and feedback. Will continue in IOP to prevent decompensation, increase healthy coping, and improve functioning. Narrative Note: []
--- NOTE | 2024-08-07 10:10 | BH.SGPN.GN ---
Behaviors/Verbalizations/Mental Status: [] Client alert and oriented, casually dressed and groomed. Eye contact good. Motor activity appropriate. Speech within normal limits. Affect congruent, mood euthymic. Thoughts linear, logical, no signs of hallucinations or delusions. Client Response/Progress/Benefit: [] Pt responded well to session AEB sharing and listening attentively to others. Group provided examples of benefits of having social support, including: validation, get assistance, and accountability. Pt also participated in group discussion regarding the barriers to accessing support including examples like: lack of trust, avoidance, and fear of vulnerability. Pt participated in experiential activity illustrating the impact communication, boundaries, and patience play in creating healthy support systems. Pt appeared to benefit from increased knowledge of the benefits of social support and greater self-awareness. Will continue IOP tx to prevent decompensation, reduce negative self-talk, and improve overall functioning. Narrative Note: []
--- NOTE | 2024-08-07 11:10 | BH.SGPN.GN ---
Behaviors/Verbalizations/Mental Status: [] Client alert and oriented, casually dressed and groomed. Eye contact good. Motor activity appropriate. Speech within normal limits. Affect congruent, mood euthymic. Thoughts linear, logical, no signs of hallucinations or delusions. Client Response/Progress/Benefit: [] pt was an active participant throughout AEB contributing to discussion, providing personal examples, and taking notes. Pt provided input during discussion on the types of support our supports can provide. Pt able to identify current support system and barriers that get in the way of using supports. Pt reported after identifying what type of supports pt receives, pt gained awareness that pt could benefit from more emotional support. Pt wants to work on opening up to others. Pt shared this would help her by having others check her thoughts and give her perspective. Pt seemed to benefit from identifying the type of support pt needs to work on improving. Pt recommended to continue IOP tx to prevent decompensation, increase overall functioning, and increase emotional regulation skills. Narrative Note: []
--- NOTE | 2024-08-10 09:00 | BH.SGPN.GN ---
Behaviors/Verbalizations/Mental Status: [] Client alert and oriented, casually dressed and groomed. Eye contact good. Motor activity appropriate. Speech within normal limits. Affect congruent, mood euthymic and anxious. Thoughts linear, logical, no signs of hallucinations or delusions. Reviewed client?s symptom tracker, no risk for suicidal ideation, plan, or intent as of 08/10/24 Client Response/Progress/Benefit: [] Client responded well to session, offering ideas to peers and providing encouragement. Client reports feeling good this morning. Client shared win of being with her daughter most of the weekend. She shared how she was able to manage her stress with taking care of her better than typical. Client indicated that even though her daughter did not nap well and that was stress provoking, she still was able to calm herself down and manage. Client shared stress of going [place] this week and getting on a plane. Client shared how she prepared to minimize feelings of anxiety that causes. Client appeared to benefit from reflecting on her growth. Client will continue IOP tx as Client continues to struggle avoidance and negative thought patterns. Narrative Note: []
--- NOTE | 2024-08-10 10:10 | BH.SGPN.GN ---
Behaviors/Verbalizations/Mental Status: []Eye contact is fair. Motor activity is appropriate. Appearance is causal. Speech is Appropriate. Mood is dysthymic. Affect is constricted. Thoughts are linear and logical. No evidence of psychosis. Client Response/Progress/Benefit: [] Pt was an engaged participant in group discussion and experiential activity. Attentive during psychoeducation on resilience. Participated during interactive discussion with peers on the definition of resilience. Able to relate experiential activity of group juggle to topics of resilience. Group worked together to identify what can impact one's ability to be resilient which included past experiences, trauma, toxic support system, lack of resources, and current mental/physical health state. Worked well with peers in small group in which they identified factors that contribute to building resilience. Benefited from increased awareness of resilience and the factors that contribute to building resilience. Will continue in IOP to increase consistent use of healthy coping skills, challenge distortions, and prevent decompensation.
--- NOTE | 2024-08-10 11:10 | BH.SGPN.GN ---
Behaviors/Verbalizations/Mental Status: []Pt alert and oriented, neatly dressed and groomed. Eye contact good. Motor activity appropriate. Speech within normal limits. Affect congruent, mood euthymic. Thoughts linear, logical, no signs of hallucinations or delusions. Client Response/Progress/Benefit: [] Pt responded well to session AEB completing the resilience worksheet provided. Pt participated in the discussion and worked cooperatively with group to identify strategies to enhance each of the components discussed. Pt reports belief they already use resilience traits of??making connections, accepting that change is a part of life, and taking decisive action.? Pt stated they would like to continue to develop resilience trait of ?maintaining a hopeful outlook? at pt recognizes she struggles with ?being a pessimist.? Pt seemed to benefit from discussing strategies for improving personal resilience and identifying resilience traits pt already possesses. Will continue IOP tx to prevent decompensation, improve daily functioning, and increase emotional regulation skills. Narrative Note: []
--- NOTE | 2024-08-12 14:24 | BH.TPR ---
Treatment Plan Review Demographics Date of Admission:: 07/20/24 Date of Treatment Plan Review:: 08/12/24 Admitting Diagnoses:: 1. Major depressive disorder, recurrent, severe without psychosis F33.2 2. Panic disorder 3. PTSD 4. Strong cluster B traits Current Diagnoses:: 1. Major depressive disorder, recurrent, severe without psychosis F33.2 2. Panic disorder 3. PTSD 4. Strong cluster B traits Patient Status Patient's Response to Treatment:: Pt has consistently attended IOP sessions. Pt's engagement is mostly passive during group sessions AEB limited verbal contributions, but does appear to take notes and completes in group worksheets. Pt does struggle with follow through on goals and practicing skills outside treatment environment. Status of Current Problems and Symptoms: Slight progress noted with a decrease in overall mental health symptoms by 21% per DSM 5 cross-cutting scale at review. Pt continues to report mild depression with loss of interest/pleasure, down mood, slight improvement with motivation, and slight improvement in energy. Pt continues to report moderate anxiety symptoms. Pt has reported improvement with being able to spend more time with her daughter independently. Pt stated she is still anxious when alone with her daughter, but has been trying to use thought challenge and remind self she cannot control everything. Progress Problem #1: Problem Name:: Depression Status of Goals:: Obj 1 - Progress noted, ongoing work encouraged. Pt is able to report triggers to her depression. Pt identifies napping everyday, not leaving her house, laying around, and not completing daily responsibilities. Pt has reported improvement with decreased napping, starting to get more done around the house, and occasionally exercising. Per DSM 5 cross-cutting scale at review client's depression has decreased by 20%. Obj 2 - not met. Pt shows improvement with being able to identify negative thought patterns, but could benefit from continued work on objective with practicing challenging thoughts. Team Recommendations:: Team recommends client continue current goals and objectives. Team recommends to continuing using Motivational Interviewing techniques to increase client's motivation with following through with using strategies and applying skills outside treatment environment. Reinforcement of progress made and helping client with giving self credit for what she is doing. Problem #2: Problem Name:: Anxiety Status of Goals:: Obj 1 - not met. Client has awareness of calming skills like belly breathing, grounding, and meditation. Client has not applied skills consistently. Per DSM 5 cross-cutting scale at review client's anxiety has decreased by 25%. Obj 2 - not met. Client recognizes many of her anxiety triggers like crowds, being alone with daughter, and driving in car. Client has difficult time consistently applying calming skills. Team Recommendations:: Team recommends client continue current goals and objectives. Team recommends to continuing using Motivational Interviewing techniques to increase client's motivation with following through with using strategies and applying skills outside treatment environment. Reinforcement of progress made and helping client with giving self credit for what she is doing.
--- NOTE | 2024-08-19 09:40 | BH.MDN ---
Multi-Disciplinary Note Note 45-min Individual: Time Started:: 09:00 Date: 08/19/24 Purpose of session/treatment goals addressed:: Purpose session was to address goals 1 and 2 from [facility]. Eye Contact:: Good Motor Activity:: Appropriate Appearance:: Casual Speech:: Appropriate Mood:: Euthymic and Other (Tired) Affect:: Congruent Thoughts:: Linear, Logical and No evidence of hallucinations/delusions noted Staff Interventions:: thought challenging, motivational interviewing, CBT techniques, rapport building, strengths perspective and goal setting Client Response:: Client reported she got back from [place] yesterday and had a really good time with her brother while they were gone for 4 days. Client stated they went to the [facility] emergency department together while they were there and got along really well. Client reported it felt good to get away for a little bit and is now feeling more energized now that she is back home. Client stated while she was in [place] she was anxious because there was a lot of people but overall after the first day she felt able to manage her anxiety by using breathing skills, taking a break, and thought challenge. 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 Client stated she is feeling excited to see her daughter today. Client reported last week she was able to have her daughter for 3 nights which is something she has not done in a while. Client stated overall to the nights client was able to manage her anxiety better and it went smoothly. Client reported when the nights client's anxiety was elevated because her daughter was struggling with teething and not sleeping. Client stated this week she would like to try to keep her daughter overnight for at least one of the nights since she is just getting back from vacation. Discussed the importance of continuing to push herself to do the anxious things that she feels more confident when she is with her daughter alone. 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 Client reported since she is feeling a little bit more motivated since being on vacation she plans to get her house cleaned this week, continue reading, communicate openly with her fianc?, and work on being alone with her daughter. Client agreed working on not try to control her situation when she is with her daughter will help decrease her own anxiety. Reviewed healthy coping skills like belly breathing, grounding, and walking away for a few minutes to take a break. Client reported she feels that the goal she has set are realistic and doable. Risks/Concerns:: Denies suicidal ideation, plan, and intention. Future oriented. Progress Toward Goals/Plan:: Progress noted with client reporting decreasing anxiety over the past week and a half. Client reported utilizing her healthy coping skills of thought challenge, breathing tools, grounding, and taking a break. Last week client was able to keep her daughter for the entire night for 3 different times which is significant progress for client. Since returning from vacation yesterday client plans to keep her daughter over night at least 1 time in the next few days. Client reported improved motivation since returning from vacation. Plan is for client to continue IOP to promote use of healthy coping skills, maintain gains, and prevent decompensation. Time Stopped:: 09:40
--- NOTE | 2024-08-19 10:10 | BH.SGPN.GN ---
Behaviors/Verbalizations/Mental Status: [] Eye contact is fair. Motor activity is appropriate. Appearance is casual. Speech is Appropriate. Mood is euthymic. Affect is constricted. Thoughts are linear and logical. No evidence of psychosis. Client Response/Progress/Benefit: [] Pt an active participant in group discussions. Participated during interactive discussion on defining conflict (internal/external) and possible benefits to conflict. Attentive during psychoeducation on conflict styles (Avoidant, Accommodating, Competing, Cooperative) and engaged during interactive discussion in which peers identified the benefits and consequences to each conflict style. Pt identified their primary conflict style as avoidant. Pt reported she used to be bulldozed which is what contributed to her becoming more avoidant. Pt stated she recognizes being avoidant often leads to her feeling disappointed and isolated. Benefited from increased awareness of the impact of conflict styles in mental health. Will continue in IOP tx to increase consistent use of healhty coping skills, challenge distortions, and prevent decompensation.
--- NOTE | 2024-08-19 11:15 | BH.SGPN.GN ---
Behaviors/Verbalizations/Mental Status: []Eye contact is good. Motor activity is appropriate. Appearance is casual. Speech is Appropriate. Mood is content. Affect is congruent. Thoughts are linear and logical. No evidence of psychosis. Client Response/Progress/Benefit: [] Pt was an active participant in group discussions and activity. Engaged with peers in activity and identifying healthy ways to approach each conflict scenario. Group discussed various conflict resolution skills that can be useful in addressing conflict outside of IOP. Benefited from practicing and learning conflict resolution skills during group activity. Able to identify areas pt wants to work on to improve how pt manages conflict both internally and externally. Expressed wanting to work on their communication skills with supports to prevent conflict avoidance. Will continue in IOP to stabilize mood, improve anxiety management skills, and prevent decompensation. Narrative Note: []
--- NOTE | 2024-08-21 09:00 | BH.SGPN.GN ---
Behaviors/Verbalizations/Mental Status: [] Eye contact is good. Motor activity is appropriate. Appearance is casual. Speech is Appropriate. Mood is euthymic. Affect is full. Thoughts are linear and logical. No evidence of psychosis. Reviewed daily check in sheet and no reports of suicidal ideations or intent. Client Response/Progress/Benefit: [] Pt was an active participant in group discussion. Attentive. Daily symptom tracker notes 11/29 for anxiety. Pt reports that she is able to identify mental health wins and healthy habits. Utilizing behavioral activation and opposite action to decrease isolation and napping throughout the day. I'm not isolating or sleeping to escape. Increased energy and engagement which has been beneficial for her depression and anxiety. Also more engaged with family which has improved relationships. Progress noted. Benefited from group support, encouragement, and feedback. Will continue in IOP to prevent decompensation, increase healthy coping, and improve functioning. Narrative Note: []
--- NOTE | 2024-08-21 10:13 | BH.SGPN.GN ---
Behaviors/Verbalizations/Mental Status: [] Eye contact is good. Motor activity is appropriate. Appearance is casual. Speech is Appropriate. Mood is content. Affect is congruent. Thoughts are linear and logical. No evidence of psychosis. Client Response/Progress/Benefit: [] Pt was an active participant in group discussions. Attentive during psychoeducation on the 4 communication styles (Passive, Passive-Aggressive, Aggressive, and Assertive) and the obstacles to effective communication. ?Self-identified a barrier they personally struggle with as difficulties organizing their thoughts when trying to communicate something important. Contributed during interactive discussion on the benefits of communicating effectively which included; having one's needs met, building connection with others, decreases stress and uncertainty, improved relationships, healthier boundaries, and increased understanding of others. Worked well in small group in which pt and peers identified the benefits and disadvantages to the different communication styles. Benefited from increased understanding of communication styles and how these can impact effective communication. Will continue in IOP to prevent decompensation, maintain mood stability, and promote continued skill application. Narrative Note: []
--- NOTE | 2024-08-21 11:10 | BH.SGPN.GN ---
Behaviors/Verbalizations/Mental Status: []Pt alert and oriented, casually dressed. Eye contact fair. Motor activity appropriate. Speech within normal limits. Affect congruent, mood euthymic. Thoughts linear, logical, no signs of hallucinations or delusions. Client Response/Progress/Benefit: [] Pt responded well to session AEB Pt listening attentively to others and providing input during group discussion on the pay offs and costs of the different communication styles. Pt able to connect how current communication style impacts mental health. Connected with peers? comments about importance of using assertive communication. Pt did well with practicing being assertive in the group activity and worked with group to identify potential skills for improving communication skills. Pt seemed to benefit from increasing awareness of healthy strategies to improve communication. Will continue IOP tx to increase follow through with goals, challenge distorted thoughts, and prevent decompensation.
--- NOTE | 2024-08-24 09:00 | BH.SGPN.GN ---
Behaviors/Verbalizations/Mental Status: [] Eye contact is good. Motor activity is appropriate. Appearance is casual. Speech is Appropriate. Mood is depressed. Affect is congruent.. Thoughts are linear and logical. No evidence of psychosis. Reviewed daily check in sheet and no reports of suicidal ideations or intent. Client Response/Progress/Benefit: [] Pt was an active participant in group discussion. Attentive. Daily symptom tracker notes 3/5 for agitation and /5 for depression/anxiety. I woke up agitated. Believe that gloomy weather has been impacting her mood and made it more challenging to complete behavioral activation. Group provided suggestions and encouragement for pt to begin to identify indoor activities to pursue as the weather changes to prevent regression and unhealthy coping skill of sleeping. Overall progress noted. Insight that opposite-action, behavioral activation, reframing/challenging thoughts, and other skills have improved her engagement, energy, and mental health. Benefited from group support, encouragment,and feedback. Will continue in IOP to prevent decompensation, stablize mood, and improve functioning. Narrative Note: []
--- NOTE | 2024-08-24 10:10 | BH.SGPN.GN ---
Behaviors/Verbalizations/Mental Status: []Client alert and oriented, casually dressed and groomed. Eye contact fair. Motor activity appropriate. Speech within normal limits. Affect constricted, mood euthymic. Thoughts linear, logical, no signs of hallucinations or delusions. Client Response/Progress/Benefit: [] Pt engaged in session AEB listening attentively to others and providing input throughout. Pt engaged in activity, able to connect how it can be uncomfortable and difficult to accept when things are out of one?s own control. Pt worked with group to identify what things in life can be hard to accept. Group identified things hard to accept as: change, loss, mental health diagnosis, other?s behaviors, and failure. Pt identified struggling to accept that ?the economy is bad, and I might have to get a job and that brings up a lot of anxiety.? Seemed to benefit from increased awareness of the importance of acceptance. Pt to continue in IOP tx to reduce avoidance, increase self-confidence, and improve daily functioning. ??? Narrative Note: []
== END 2024-08-24 23:59 ==
LOC: BHIOP 07:11
PROVIDERS: PCP Nurse Practitioner Family; Visit Provider Psychiatry & Neurology Psychiatry
DX: F33.2 Major depressive disorder, recurrent severe without psychotic features (principal); F41.0 Panic disorder [episodic paroxysmal anxiety]; F43.10 Post-traumatic stress disorder, unspecified; Z79.899 Other long term (current) drug therapy
CPT/HCPCS: H2012; H2020; S9480; 90832; 90834

== ENCOUNTER 2024-08-25 08:01 | Outpatient (RCR) | payer MEDICAID, SELFPAY ==
[2024-08-25 00:24] VITALS: BP 152/99; PULSE 71
--- NOTE | 2024-08-26 10:10 | BH.SGPN.GN ---
Behaviors/Verbalizations/Mental Status: [] Eye contact is good. Motor activity is appropriate. Appearance is casual. Speech is Appropriate. Mood is content. Affect is congruent. Thoughts are linear and logical. No evidence of psychosis Client Response/Progress/Benefit: [] Pt responded well to session AEB contributing to small group discussion, taking notes, and listening attentively to others. Group defined anger and discussed the benefits of managed anger and anger as a secondary emotion. Group shared perspective on benefits of anger as advocating for self and getting needs met, as well as a catalyst for change. Pt completed worksheet on anger triggers and personal warning signs of anger. Pt identified a common trigger as people not doing what they say they will and Not being listened to . Appeared to benefit from increased knowledge of the anger cycle as well as personal triggers. Will continue IOP to increase healthy coping, prevent decompensation, and improve mood stability. Narrative Note: []
--- NOTE | 2024-08-26 11:10 | BH.SGPN.GN ---
Behaviors/Verbalizations/Mental Status: []Client alert and oriented, casually dressed and groomed. Eye contact fair. Motor activity appropriate. Speech within normal limits. Affect constricted, mood dysthymic. Thoughts linear, logical, no signs of hallucinations or delusions. Client Response/Progress/Benefit: []Pt was engaged throughout AEB contributing to group discussion and activity. Group processed how they each responded to the intentionally difficult task they were asked to completed and described the physical and emotional anger cues experienced throughout, as well as strategies used for managing these frustrations. Pt contributed as group brainstormed healthy coping skills for better managing anger which included: music, walking/exercise, taking a break, healthy venting, avoiding unnecessary stressors, reflection, and journaling. Pt cooperative with working in small groups to identify what strategy wants to work on to help interrupt personal anger cycle. Pt to continue IOP to improve consistent use of healthy coping skills, challenge distortions, and prevent decompensation.
--- NOTE | 2024-08-26 13:34 | BH.MDN ---
Multi-Disciplinary Note Note 30-min Individual: Time Started:: 09:15 Date: 08/26/24 Purpose of session/treatment goals addressed:: Purpose of session was to address goals 1 and 2 from MTP. Eye Contact:: Good Motor Activity:: Appropriate Appearance:: Casual Speech:: Appropriate Mood:: Euthymic Affect:: Congruent Thoughts:: Linear, Logical and No evidence of hallucinations/delusions noted Staff Interventions:: CBT techniques, mindfulness skills, discharge planning, strengths perspective, goal setting and taught coping skills Client Response:: Client reported overall the last week is gone fairly well with improved mood and improved energy. Client stated she only took 1 nap in the last week which is significant progress for her because she was napping almost daily. Client reported she had to use opposite action because there were days in which she wanted to nap especially with it being rainy outside but was able to make herself do other things around the house instead. Client stated she has noticed slight to moderate improvement in motivation level which has helped her get more things done around the house. Client reports she also was able to use opposite action to work out at home in which she does some cardio. Client stated she has not had her daughter back since returning from her long weekend away in [place]. Client reported she chose not to bring her daughter home because her fianc? was feeling sick and did not want her daughter to catch anything. Client reported her mom has had her daughter for the last 2 weeks. Client stated she is feeling excited to get her daughter back tonight and does plan to keep her daughter overnight. Client stated she thinks it would be good for her to try to keep her daughter longer every 2 days or so as a way to continue working on exposed herself to anxiety provoking situations. Client reported when she gets her daughter back today she plans to practice using grounding mindfulness tools to help decrease her anxiety so that she can allow her daughter to explore more without feeling anxious to control every situations to prevent her daughter from getting her. Client stated she is trying to work on accepting that she cannot protect her daughter from everything and that her daughter has to be able to explore in order to have personal growth things and learn for herself. Client stated additional anxiety is possibly needing to get a job because her fianc? brought it up the other day that it would be helpful for them financially. Client reported she has not worked early in 2 years so is anxious that she will not be able to manage it or that when she does go back able trigger all her mental symptoms again. Client was receptive to thought challenge assistance from therapist and recognizing that she was able to manage her last job for 2 years and that she is in a different place compared to when she was in high school. Client stated she does recognize that she is more of a people person and that she can find a job that would be a good fit for her. Client stated she has an appointment to meet with her case specialist from [facility] to help get her moving towards obtaining a job. Risks/Concerns:: Denies suicidal ideation, plan, intention. Progress Toward Goals/Plan:: Progress noted with client reporting improved motivation, improved energy, decreased depression, and more manage anxiety. Client did not make much gains in regards to her goal of increasing independence time with her daughter because her daughter has been with her mom for about client stated she does plan to get her daughter back today and will keep her daughter overnight 2 weeks. To continue working on decreasing anxiety about caretaking on her own. Client stated she is starting to feel more confident in her ability to manage her mental symptoms and has been able to get things done around the house and started working out. Client has a plan to meet with her case specialist from the [facility] to start discussing returning back to work. Although client is anxious she recognizes it could be good for her to have at least a part-time job to give her purpose each day and get her out of the house. 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 Client receptive and open to calling number provided to establish with outpatient counseling. Plan is for client to continue IOP to establish aftercare, promote use of healthy coping skills, and prevent decompensation. Time Stopped:: 09:50
--- NOTE | 2024-08-28 09:00 | BH.SGPN.GN ---
Behaviors/Verbalizations/Mental Status: [] Eye contact is good. Motor activity is appropriate. Appearance is casual. Speech is Appropriate. Mood is depressed.. Affect is congruent. Thoughts are linear and logical. No evidence of psychosis. Reviewed daily check in sheet and no reports of suicidal ideations or intent. Client Response/Progress/Benefit: [] Pt participated at times during the group discussions. Attentive. I'm getting linked with resources . Utilizing opposite-action, reframing, and identifying cognitive distortions on a consistent basis which has been beneficial. According to pt its been a stressful week . Elaborated on stressors and how they have impacted mental health, thoughts, and overall functioning. Progress noted. Benefited from group support, encouragement, and feedback. Will continue in IOP to prevent decompensation, stabilize mood, and improve functioning. Narrative Note: []
--- NOTE | 2024-08-28 10:10 | BH.SGPN.GN ---
Behaviors/Verbalizations/Mental Status: []Pt alert and oriented, casually dressed and groomed. Eye contact good. Motor activity appropriate. Speech within normal limits. Affect congruent, mood content. Thoughts linear, logical, no signs of hallucinations or delusions. Client Response/Progress/Benefit: [] Pt took notes and contributed to group discussions. Attentive during psychoeducation on growth mindset. Participated during the activity. Interactive group discussion on growth mindset in which group verbalized their current fixed mindsets and how they affect their mental health. Pt shared common fixed mindset thoughts they have which included I'm never getting better; I?m not good enough; I'm broken?. These thoughts lead to feeling and staying stuck, not using skills, and self-criticism. Pt stated they have personally struggled with fixed thoughts causing them to stop trying. Pt benefited from increased awareness of growth mindset and fixed thoughts and how fixed thoughts impact their mental health. Will continue IOP tx to prevent decompensation, improve daily functioning, and promote mood stability. Narrative Note: []
--- NOTE | 2024-08-28 11:15 | BH.SGPN.GN ---
Behaviors/Verbalizations/Mental Status: []Pt alert and oriented, casually dressed and groomed. Eye contact good. Motor activity appropriate. Speech within normal limits. Affect congruent, mood euthymic. Thoughts linear, logical, no signs of hallucinations or delusions. Client Response/Progress/Benefit: [] Pt was an active participant during activity and discussion. Pt did well to remain attentive and participate as group worked on identifying characteristics and benefits of adopting a growth mindset. Worked with fellow participants in reframing the example fixed thoughts into growth mindset thoughts. Pt worked on changing own fixed thought and reframed the thought to ?I may not be the best, but I can grow and change.? Pt also wants to work on start writing down things she can change appeared to benefit from challenging own thoughts and engaging in the activity. Pt will continue IOP tx to reduce isolation, increase independence, and reduce negative thought patterns. ? Narrative Note: []
--- NOTE | 2024-08-31 09:05 | BH.SGPN.GN ---
Behaviors/Verbalizations/Mental Status: [] Eye contact is good. Motor activity is appropriate. Appearance is casual. Speech is Appropriate. Mood is euthymic. Affect is full. Thoughts are linear and logical. No evidence of psychosis. Reviewed daily check in sheet and no reports of suicidal ideations or intent. Client Response/Progress/Benefit: [] Pt participated at times during the group discussions. Daily symptom tracker notes 01/27 for agitation. Attentive. I'm tired today . According to pt her daughter was up all night which impacted her sleep. Overall she reports a good weekend . She is consistently utilizing skills and behavioral activation/opposite action. Maintaining her goals. Despite having several significant psychosocial stressors occurring (father is having heart surgery today) she feels confident in her emotion regulation skills. Progress noted. Benefited from group support, encouragement, and feedback. Will continue in IOP to maintain gains and prevent decompensation. Narrative Note: []
--- NOTE | 2024-08-31 20:00 | BH.SGPN.GN ---
Behaviors/Verbalizations/Mental Status: []Pt alert and oriented, casually dressed and groomed. Eye contact good. Motor activity appropriate. Speech within normal limits. Affect congruent, mood content. Thoughts linear, logical, no signs of hallucinations or delusions. Client Response/Progress/Benefit: [] Pt responded well to session, taking notes and contributing when prompted. Group discussed the different categories of coping skills which included distraction, emotional release, grounding, self-love, and thought challenging. Pt participated in creating a coping skills ?menu? from the five categories of coping skills. Pt's coping skill menu included: being outdoors, art, body scan, affirmations, and looking at evidence for/against. Appeared to benefit from increasing repertoire of healthy coping skills. Will continue IOP to promote mood stability, combat distortions, and increase anxiety management skills. Narrative Note: []
--- NOTE | 2024-09-02 09:00 | BH.SGPN.GN ---
Behaviors/Verbalizations/Mental Status: [] Pt alert and oriented, casually dressed and groomed. Eye contact good. Motor activity appropriate. Speech within normal limits. Affect congruent, mood content. Thoughts linear, logical, no signs of hallucinations or delusions. Reviewed pt?s symptom tracker, no risk for suicidal ideation, plan, or intent 09/02/24 Client Response/Progress/Benefit: []Pt was an active participant in group discussions. Attentive. Able to identify mental health wins including successfully keeping her daughter for the past 4 days. Shared she is often anxious something will happen and did well to challenge the urge to be a helicopter mom . Additional win noted as making plans with her supports for her and her mothers upcoming birthday celebrations. Expressed excitement to have something to look forward to. Stressor noted as her father's current recovery from surgery and hoping he is doing well. Shared she plans to visit with him following group today. Benefited from group support, encouragement, and feedback. Will continue in IOP to prevent decompensation, promote mood stability, and increase application of consistent coping skills. Narrative Note: []
--- NOTE | 2024-09-02 10:10 | BH.SGPN.GN ---
Behaviors/Verbalizations/Mental Status: [] Eye contact is good. Motor activity is appropriate. Appearance is casual. Speech is Appropriate. Mood is euthymic. Affect is full.. Thoughts are linear and logical. No evidence of psychosis. Client Response/Progress/Benefit: [] Pt was an active participant during interactive group discussions.Along with peers contributed to interactive discussion on defining what a boundary is in mental health. Pt along with peers identified challenges to setting boundaries which included; people pleasing, fear of rejection, fear of loss, fear people won't respect the boundary, etc. Pt along with peers identified the benefits to setting boundaries such as reduces assumptions, can reduce stress, improve communication/relationships, and can keep us safe. Attentive during psychoeducation on types of boundaries (rigid, porous, flexible). Pt benefited from increased awareness and insight on the importance/benefit to setting health boundaries. Will continue in IOP to prevent decompensation, stabilize mood, and improve functioning. Narrative Note: []
--- NOTE | 2024-09-02 11:05 | BH.SGPN.GN ---
Behaviors/Verbalizations/Mental Status: []Eye contact is good. Motor activity is appropriate. Appearance is casual. Speech is Appropriate. Mood is calm. Affect is congruent. Thoughts are linear and logical. No evidence of psychosis. Client Response/Progress/Benefit: []Pt responded well to session AEB listening attentively to peers and taking notes throughout. Reports connecting most with rigid boundaries when it comes to emotions, and pt wants to work on becoming more flexible. Participated in group discussion brainstorming various strategies for improving healthy boundary setting. Pt reports wanting to work on avoiding vague responses and asking herself why her boundaries have changed. Seemed to benefit from increased awareness of how different boundary styles can impact mental health. Will continue IOP tx to promote mood stability, increase self-confidence, and improve daily functioning. Narrative Note: []
--- NOTE | 2024-09-09 10:15 | BH.SGPN.GN ---
Behaviors/Verbalizations/Mental Status: []Pt alert and oriented, casually dressed and groomed. Eye contact fair Motor activity appropriate. Speech within normal limits. Affect flat, mood depressed. Thoughts linear, logical, no signs of hallucinations or delusions. Client Response/Progress/Benefit: []Pt participated in group discussion. Group worked together to identify benefits of healthy relationships which included encouragement, motivation, longer lifespan, connectedness and trust. Group identified factors that lead to unhealthy relationships which included low self-esteem, trauma, use of unhealthy skills, parent's negative relationship growing up, and co-dependence. Pt reports she has entered unhealthy relationships because it's what I thought was normal. Benefited from increased insight and awareness of benefits of healthy relationships and factors that contribute to unhealthy relationships. Will continue in IOP to promote mood stability, increase distress tolerance skills, and improve daily functioning. Narrative Note: []
--- NOTE | 2024-09-09 11:15 | BH.SGPN.GN ---
Behaviors/Verbalizations/Mental Status: [] Pt alert and oriented, casually dressed and groomed. Eye contact fair. Motor activity appropriate. Speech within normal limits. Affect congruent, mood dysthymic, Thoughts linear, logical, no signs of hallucinations or delusions Client Response/Progress/Benefit: [] Client responded well to session, engaged and taking notes throughout. Worked with group to connect components of the experiential activity with characteristics of healthy and unhealthy relationships. Attentive during psychoeducation about characteristics of healthy, unhealthy, and abusive relationships. Client reported she would like to continue to improve trust, spending time with others, and communication in relationships. Appeared to benefit from identifying current healthy relationship attributes and an area client wants to work on to build healthier relationships. Client to continue IOP to increase consistent use of healthy coping skills, challenge distortions, and prevent decompensation.
--- NOTE | 2024-09-09 11:46 | BH.MDN_ITS ---
Multi-Disciplinary Note Note 45-min Individual: Time Started:: 09:20 Date: 09/09/24 Purpose of session/treatment goals addressed:: Purpose of session was to discuss upcoming discharge from program and identify aftercare plans. Eye Contact:: Fair Motor Activity:: Appropriate Appearance:: Casual Speech:: Appropriate Mood:: Anxious, Depressed and Other (tearful) Affect:: Congruent Thoughts:: Linear, Logical and No evidence of hallucinations/delusions noted Staff Interventions:: thought challenging, CBT techniques, discharge planning, strengths perspective, completed risk assessment / safety planning and goal setting Client Response:: Client reported she's struggling today because on Saturday evening her fianc? found in her phone that she had been messaging another male through [employer] [place]. Client didn't elaborate on what she was talking with this odalys about however stated that she recognizes it was emotional infidelity. Client reported her fianc? became extremely upset and client reported said many hurtful things to her period client reported she recognizes that he was angry about the situation but still feels hurt about some of the stuff he was saying. Client tearful while talking about current stressor. Client reported she is unsure about the status of the relationship and if her fianc? is wanting and willing to continue to work on her relationship. Client stated she's unsure as to why last week she decided to chat with another odalys. Through exploration client stated she thinks that she was seeking validation from another person because currently she doesn't feel very confident about her body due to continuing to gain weight for an unknown reason. Client stated she recognizes seeking validation through another person is not healthy nor did it help her situation. Client stated the last two days she has been having suicidal thoughts it is I'm sure she's ready for discharge from [facility] today. Client reported she thinks it would be helpful to have the supportive IOP for at least two weeks while she figures things out with her fianc?. Client stated she also has her first intake appointment without patient counseling this week. Client stated her goal this week is to make it to all her other appointments because she's upset with herself for missing her sleep study appointment on Saturday. Client stated additional goal is to Sit down with fianc? and have an honest conversation about each other's needs and wants. Risks/Concerns:: Client reporting suicidal thoughts over the last two days. Client denies suicidal plan or intention. Feels able to maintain safety. Identifies family as protective factor. Client denies access to firearms or stockpile of medications. Progress Toward Goals/Plan:: Decompensation noted due to recent psychosocial stressor with her fiance. Client made impulsive choices last week that has led to potential ending of her engagement. Client reported increased suicidal thoughts the last two days. Through discussion with client it seems to be in her best interest clinically to continue IOP for 2 weeks so she has support while navigating this stressful situation. This will also give client time to establish with her outpatient counselor. Time Stopped:: 10:00
--- NOTE | 2024-09-21 09:05 | BH.SGPN.GN ---
Behaviors/Verbalizations/Mental Status: [] Eye contact is good. Motor activity is appropriate. Appearance is casual. Speech is Appropriate. Mood is depressed/irritable. Affect is constricted. Thoughts are linear and logical. No evidence of psychosis. Reviewed daily check in sheet and no reports of suicidal ideations. Client Response/Progress/Benefit: [] Pt was an active participant in group discussions. Attentive. Daily symptom tracker notes 12/30 for anxiety. Pt did not attend IOP last week. ? It was not a good week? According to pt she was ?sick? and stressed which led to spending a week with her mother. ? Rough week?. ? I spent lots of time in bed?. She has been dealing with relationship conflict which was also an significant contributor to regression. No progress noted. Benefited from group support, encouragement, and feedback. Will continue in IOP to prevent decompensation, increase healthy coping, and improve functioning. Narrative Note: []
--- NOTE | 2024-09-21 10:15 | BH.SGPN.GN ---
Behaviors/Verbalizations/Mental Status: [] Client alert and oriented, casually dressed and groomed. Eye contact good. Motor activity appropriate. Speech within normal limits. Affect congruent, mood euthymic and anxious. Thoughts linear, logical, no signs of hallucinations or delusions. Client Response/Progress/Benefit: [] Client was an active participant AEB contributing to discussion, taking notes, and engaging in group activity. Connected with the topic of pitfalls and listened to group discussion on barriers that prevent from choosing a healthier path to mental wellness. Group worked together to identify examples of personal pitfalls which included; isolation, avoidance, making excuses, denial, distortions, and unhealthy coping. Client identified falling out of routines and entertaining intrusive thoughts as personal pitfalls that have inhibited progress in the past. Client benefited from group as client learned to better identify potential barriers to improving mental health symptoms. Client will continue IOP tx to prevent decompensation, gain healthy support, and improve daily functioning.
--- NOTE | 2024-09-21 14:42 | BH.MDN ---
Multi-Disciplinary Note Note 30-min Individual: Time Started:: 11:40 Date: 09/21/24 Purpose of session/treatment goals addressed:: Purpose of session was to address goals 1 to from [facility]. Additional goal was to discuss tentative discharge plan. Eye Contact:: Good Motor Activity:: Appropriate Appearance:: Casual Speech:: Appropriate Mood:: Euthymic Affect:: Congruent Thoughts:: Linear, Logical and No evidence of hallucinations/delusions noted Staff Interventions:: thought challenging, CBT techniques, discharge planning and strengths perspective Client Response:: Client stated she missed IOP last week because she was sick. Client reported she is feeling mentally better this week because it is started to work things out with her fianc?. Client stated although she knows it is a lot of work to do within the relationship it sounds like from her perspective that her fianc? is willing to try to work on improving things. Client reported she went on a date with her fianc? over the weekend and thought it went really well. Client stated her fianc? expressed wanting to see her make changes that will help her get back to being more engaged with him and have an improvement. Client reports she also expressed to him that she wants to see effort on both sides to get back to dating each other instead of just following into the pattern of the same thing every day. Client stated her fianc? did express willingness to go to couples counseling which is something he has never agreed to in the past. Client reported she thinks it could be helpful for them to sit down with a therapist that could help them work on some the areas that they have been struggling with. Client stated the situation of him and finding that she was messaging another person behind his back last week was in a way a wake-up call for her and him to start working on building each other up and nurturing the relationship. Client stated she really wants to make things work because she wants her family to be together. Client stated she recognizes if she is not more forthcoming and direct with her fianc? about what she is thinking and feeling it could lead to her making decisions that are not healthy for herself or him. Client reported she is feeling ready to discharge from [facility] this week. Client states she knows she has skills just needs to continue to use them more consistently. Client stated she would like to do aftercare program through the Hospital because she thinks having consistent support would be helpful in maintaining her progress. Risks/Concerns:: Denies suicidal ideation, plan, and intention to date. Progress Toward Goals/Plan:: Progress noted with client reporting improved daily functioning, improved motivation, opening up to her fianc?, decreased anxiety, and less anxiety when caring for her daughter independently. Client reported she did follow through with intake appointment for [facility] to establish with individual counselor. client reported she has to call and reschedule appointment because she was sick last week. Plan is for client to discharge from [facility] this week. Time Stopped:: 12:05
--- NOTE | 2024-09-22 09:00 | BH.SGPN.GN ---
Behaviors/Verbalizations/Mental Status: [] Pt alert and oriented, casually dressed and groomed. Eye contact good. Motor activity appropriate. Speech within normal limits. Affect congruent, mood euthymic. Thoughts linear, logical, no signs of hallucinations or delusions. Reviewed pt?s symptom tracker, no risk for suicidal ideation, plan, or intent 09/22/24 Client Response/Progress/Benefit: []Pt was an active participant in group discussions. Attentive. Able to identify mental health wins including looking forward to more things in general and being more consistent with cleaning. Pt stated she is feeling tired but happy this morning. Pt shared her stressor is knowing she will need to find a job, but pt thinks she has an idea of what she wants to do. Pt receptive to feedback from peers which pt reported was helpful. Progress noted. Benefited from group support, encouragement, and feedback. Will continue in IOP to promote mood stability and reinforce healthy coping skills. Narrative Note: []
--- NOTE | 2024-09-22 10:15 | BH.SGPN.GN ---
Behaviors/Verbalizations/Mental Status: [] Eye contact is good. Motor activity is appropriate. Appearance is casual. Speech is Appropriate. Mood is euthymic. Affect is congruent. Thoughts are linear and logical. No evidence of psychosis. Client Response/Progress/Benefit: [] Pt was an active participant in group discussions. Attentive during psychoeducation on the 4 communication styles (Passive, Passive-Aggressive, Aggressive, and Assertive) and the obstacles to effective communication. ?Self-identified a barrier they personally struggle with as communicating with sarcasm or behaviors preventing them from communicating when they need to or want to in an effective manner and at times resulting in conflict. Contributed during interactive discussion on the benefits of communicating effectively which included; having one's needs met, decreases stress and uncertainty, improved relationships, healthier boundaries, and avoids unnecessary conflict. Worked well with peers to identify the benefits and disadvantages to the different communication styles. Benefited from increased understanding of communication styles and how these can impact effective communication. Will continue in IOP to prevent decompensation, maintain mood stability and continue to promote application of healthy coping skills. Narrative Note: []
--- NOTE | 2024-09-22 11:10 | BH.SGPN.GN ---
Behaviors/Verbalizations/Mental Status: []Pt alert and oriented, casually dressed. Eye contact fair. Motor activity appropriate. Speech within normal limits. Affect congruent, mood dysthymic. Thoughts linear, logical, no signs of hallucinations or delusions. Client Response/Progress/Benefit: [] Pt responded well to session AEB Pt listening attentively to others and providing input during group discussion on the pay offs and costs of the different communication styles. Pt able to connect how current communication style impacts mental health. Connected with peers? comments about importance of using assertive communication. Pt did well with practicing being assertive in the group activity and worked with group to identify potential skills for improving communication skills. Pt stated she will practice being assertive by verbalizing what she wants to get more often. Pt seemed to benefit from increasing awareness of healthy strategies to improve communication. Will continue IOP tx to increase follow through with goals, challenge distorted thoughts, and prevent decompensation.
--- NOTE | 2024-09-23 09:05 | BH.SGPN.GN ---
Behaviors/Verbalizations/Mental Status: [] Client alert and oriented, casual appearance. Eye contact good. Motor activity appropriate. Speech within normal limits. Affect congruent, mood euthymic. Thoughts linear, logical, no signs of hallucinations or delusions. Reviewed client's symptom tracker, no risk for suicidal ideation, plan, or intent. Client Response/Progress/Benefit: [] Client responded well to session AEB listening to others and sharing thoughts/feelings. Client noted current stressor to be needing to get house work done and being on her menstrual cycle which impacts her mood. Client stated mental positive as graduating from IOP today. Client noted she can see progress with improved communication, ability to reframe distortions, decrease in anxiety, decrease in panic attacks, and improve mood. Client stated additional positive as being more receptive this time in the program to using the skills. Identified feeling optimistic today. Appeared to benefit from support from peers. Will discharge from IOP Today. Narrative Note: []
--- NOTE | 2024-09-23 10:10 | BH.SGPN.GN ---
Behaviors/Verbalizations/Mental Status: [] Pt alert and oriented, casually dressed and groomed. Eye contact good. Motor activity appropriate. Speech within normal limits. Affect congruent, mood depressed and anxious. Thoughts linear, logical, no signs of hallucinations or delusions. Client Response/Progress/Benefit: [] Pt an active participant in group discussions on defining conflict (internal/external) and possible benefits to conflict. Attentive during psychoeducation on conflict styles (avoidant, accommodating, competing, cooperative) and engaged during group discussion in which peers identified the benefits and consequences to each conflict style. Pt identified that she tends to be avoidant and hopes she can be more cooperative but assertive of my wants and needs . Benefited from increased awareness of the impact of conflict styles in mental health. Plan to discharge from [facility] successfully today. Narrative Note: []
--- NOTE | 2024-09-23 11:10 | BH.SGPN.GN ---
Behaviors/Verbalizations/Mental Status: []Eye contact is good. Motor activity is appropriate. Appearance is casual. Speech is Appropriate. Mood is content. Affect is congruent. Thoughts are linear and logical. No evidence of psychosis. Client Response/Progress/Benefit: [] Pt was an active participant in group discussions and activity. Engaged with peers in activity and identifying healthy ways to approach each conflict scenario. Group discussed various conflict resolution skills that can be useful in addressing conflict outside of IOP. Benefited from practicing and learning conflict resolution skills during group activity. Able to identify areas pt wants to work on to improve how pt manages conflict both internally and externally. Expressed wanting to work on their ability to be more cooperative, but assertive with their wants and needs. Will d/c today and continue in outpatient counseling to maintain mood stability, improve consistency in application of skills, and prevent decompensation. Narrative Note: []
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
--- NOTE | 2024-09-23 14:58 | BH.MDN_ITS ---
Multi-Disciplinary Note Note 30-min Individual: Time Started:: 11:30 Date: 09/23/24 Purpose of session/treatment goals addressed:: Purpose of session was to review treatment progress, complete maintenance plan, and solidify aftercare plans. Eye Contact:: Good Motor Activity:: Appropriate Appearance:: Casual Speech:: Appropriate Mood:: Euthymic Affect:: Congruent Thoughts:: Linear, Logical and No evidence of hallucinations/delusions noted Staff Interventions:: CBT techniques, discharge planning, strengths perspective and other (maintenance plan) Client Response:: Client reported she is feeling nervous about being done with [facility] because she enjoys having the connection with others. Client stated although she is feeling anxious she knows she has the skills that can help her manage mental health symptoms more effectively. Client reported she has made progress with improved communication, ability to challenge distortions more effectively, decreased depression, decreased anxiety, and improved daily functioning. Client stated has made some progress with decreased anxiety when caring for her daughter independently, but reported she needs to continue working on this area. Client reported progress is also noted with client meeting with the [facility] to start exploring employment options. Client worked with therapist to complete maintenance plan. Client identified on her plan triggers, warning signs, self-care activities, and healthy coping skills/strategies. Client and therapist discussed aftercare follow up. Risks/Concerns:: Denies suicidal ideation, plan, or intention to date. f uture oriented. Progress Toward Goals/Plan:: Progress noted with client reporting improved daily functioning, decreased anxiety, decreased depression, improved communication, and ability to challenge distortions more effectively. Per client's DSM 5 cross-cutting measure her anxiety has decreaed by 58%, unpleasant thoughts and images by 67%, and overall mental health symptoms decreased by 36%. Client's depression score on the DSM 5 cross-cutting measure stayed the same when compared to her admission scores. This could be attributed to recent psychosocial stressor with her fianc?. Plan is for client to discharge from [facility] today. Client is established with Pearl at [facility] and has an appointment next week. Client has an appointment her her psychiatrist, Dr. Cortez, in two weeks. Client will start [facility] Aftercare Program on 10/01/24. Time Stopped:: 11:55
== END 2024-09-23 12:08 | disposition home or self-care (01) ==
LOC: BHIOP 08:01
PROVIDERS: PCP Nurse Practitioner Family; Visit Provider Psychiatry & Neurology Psychiatry
DX: F33.2 Major depressive disorder, recurrent severe without psychotic features (principal); F41.0 Panic disorder [episodic paroxysmal anxiety]; F43.10 Post-traumatic stress disorder, unspecified; Z79.899 Other long term (current) drug therapy
CPT/HCPCS: H2012; H2020; S9480; 90832; 90834